=== PATIENT | male | born 1950 | race Caucasian/White ===

== ENCOUNTER → 2019-12-26 14:40 | Outpatient (CLI) | payer MEDICARE, OTHER, SELFPAY ==
[2019-12-26 17:10] LABS: Hemoglobin A1C% w Est Avg Glu 8.5 % (4.0-6.0)
[2019-12-26 17:18] LABS: Alanine Aminotransferase 21 IU/L (<50); Albumin 4.6 g/dL (3.5-5.0); Albumin Globulin Ratio 1.5 (1.0-2.8); Alkaline Phosphatase 81 U/L (38-126); Aspartate Aminotransferase 27 IU/L (17-59); BUN Creatinine Ratio 22.5 (6-22); Bilirubin Total 0.7 mg/dL (0.2-1.3); Blood Urea Nitrogen 23 mg/dL (9-20); Calcium 10.3 mg/dL (8.4-10.2); Carbon Dioxide 27 mmol/L (22-32); Chloride 101 mmol/L (98-107); Cholesterol 169 mg/dL (140-199); Estimated Glomerular Filt Rate > 60.0 mL/min (>60); Globulin 3.1 g/dL (1.7-4.1); Glucose 206 mg/dL (80-110); HDL Cholesterol 40 mg/dL (40-60); HEMOLYSIS < 15 (0-50); LDL Cholesterol Calculated 102 mg/dL (<100); Potassium 4.1 mmol/L (3.4-5.1); Sodium 141 mmol/L (137-145); Total Protein 7.7 g/dL (6.3-8.2); Triglycerides 136 mg/dL (35-150)
== END ==
PROVIDERS: PCP Internal Medicine; Referring Provider Internal Medicine; Visit Provider Internal Medicine
DX: I10 Essential (primary) hypertension (principal); E11.9 Type 2 diabetes mellitus without complications; E78.5 Hyperlipidemia, unspecified
CPT/HCPCS: 36415; 80053; 80061; 83036

== ENCOUNTER → 2020-06-18 16:23 | Outpatient (ROUT) | payer MEDICARE, OTHER, SELFPAY ==
[2020-06-18 17:18] LABS: Creatinine Urine Random 123.9 mg/dL
[2020-06-18 17:22] LABS: Microalbumi Creatinin Ratio Ur 50.8 ug/mg CR (<30); Microalbumin Urine Random 6.3 mg/dL (0-1.6)
[2020-06-18 17:45] LABS: Alanine Aminotransferase 27 IU/L (<50); Albumin 3.9 g/dL (3.5-5.0); Albumin Globulin Ratio 1.6 (1.0-2.8); Alkaline Phosphatase 97 U/L (38-126); Aspartate Aminotransferase 28 IU/L (17-59); BUN Creatinine Ratio 12.9 (6-22); Bilirubin Total 0.7 mg/dL (0.2-1.3); Blood Urea Nitrogen 11 mg/dL (9-20); Carbon Dioxide 28 mmol/L (22-32); Chloride 99 mmol/L (98-107); Cholesterol 145 mg/dL (140-199); Estimated Glomerular Filt Rate > 60.0 mL/min (>60); Globulin 2.5 g/dL (1.7-4.1); Glucose 316 mg/dL (80-110); HDL Cholesterol 47 mg/dL (40-60); HEMOLYSIS < 15 (0-50); LDL Cholesterol Calculated 65 mg/dL (<100); Potassium 4.2 mmol/L (3.4-5.1); Sodium 137 mmol/L (137-145); Total Protein 6.4 g/dL (6.3-8.2); Triglycerides 165 mg/dL (35-150)
[2020-06-18 17:48] LABS: Hemoglobin A1C% w Est Avg Glu 12.4 % (4.0-6.0)
== END ==
PROVIDERS: PCP Internal Medicine; Visit Provider Internal Medicine
DX: E11.9 Type 2 diabetes mellitus without complications (principal); E78.5 Hyperlipidemia, unspecified; I10 Essential (primary) hypertension
CPT/HCPCS: 80053; 80061; 82043; 82570; 83036

== ENCOUNTER → 2020-08-11 11:10 | Outpatient (CLI) | payer MEDICARE, OTHER, SELFPAY ==
[2020-08-11 13:38] LABS: Cholesterol 136 mg/dL (140-199); HDL Cholesterol 48 mg/dL (40-60); LDL Cholesterol Calculated 64 mg/dL (<100); Triglycerides 118 mg/dL (35-150)
== END ==
PROVIDERS: PCP Internal Medicine; Referring Provider Internal Medicine; Visit Provider Internal Medicine
DX: E11.9 Type 2 diabetes mellitus without complications (principal); E78.5 Hyperlipidemia, unspecified
CPT/HCPCS: 36415; 80061

== ENCOUNTER → 2024-05-08 17:29 | Outpatient (CLI) | payer MEDICARE, SELFPAY ==
[2024-05-08 17:57] LABS: Add Manual Diff / Slide Review NO; Basophils Absolute Auto 0 /uL (0-100); Basophils Percent Auto 0.5 % (0-2); Eosinophils Absolute Auto 100 /uL (0-450); Hematocrit 29.2 % (41-53); Hemoglobin 9.8 g/dL (13.5-17.5); Lymphocytes Absolute Auto 800 /uL (1100-4500); Lymphocytes Percent Auto 12.9 % (25-40); Mean Corpuscular HGB Conc 33.6 % (30-36); Mean Corpuscular Hemoglobin 29.5 PG (26-34); Mean Corpuscular Volume 87.7 fL (80-100); Monocytes Absolute Auto 400 /uL (0-900); Monocytes Percent Auto 7.4 % (3-14); Neutrophils Absolute Auto 4800 /uL (1500-7000); Neutrophils Percent Auto 78.2 % (50-75); Platelet Count 429 X10^3/uL (150-400); Red Blood Cell Count 3.33 X10^6/uL (4.5-5.9); Red Cell Distribution Width 19.5 % (11.6-14.8); White Blood Cell Count 6.1 X10^3/uL (4.5-11.0)
[2024-05-08 18:22] LABS: Alanine Aminotransferase 10 IU/L (<50); Albumin 3.7 g/dL (3.5-5.0); Albumin Globulin Ratio 1.2 (1.0-2.8); Alkaline Phosphatase 110 U/L (38-126); Aspartate Aminotransferase 26 IU/L (17-59); BUN Creatinine Ratio 15.6 (6-22); Bilirubin Total 0.4 mg/dL (0.2-1.3); Blood Urea Nitrogen 60 mg/dL (9-20); Calcium 9.4 mg/dL (8.4-10.2); Carbon Dioxide 15 mmol/L (22-32); Chloride 112 mmol/L (98-107); Cholesterol 165 mg/dL (140-199); Estimated Glomerular Filt Rate 16 mL/min (>60); Globulin 3.1 g/dL (1.7-4.1); Glucose 99 mg/dL (80-110); HDL Cholesterol 66 mg/dL (40-60); HEMOLYSIS < 15 (0-50); LDL Cholesterol Calculated 61 mg/dL (<100); Potassium 3.4 mmol/L (3.4-5.1); Sodium 141 mmol/L (137-145); Total Protein 6.8 g/dL (6.3-8.2); Triglycerides 191 mg/dL (35-150)
[2024-05-08 18:53] LABS: TSH w/ Reflex to FT4 4.74 uIU/mL (0.47-4.68)
[2024-05-08 18:57] LABS: Hemoglobin A1C% w Est Avg Glu 5.1 % (4.0-6.0)
[2024-05-08 19:56] LABS: Free T4, Direct Thyroxine 0.91 ng/dL (0.78-2.19)
== END ==
LOC: LAB 17:30
PROVIDERS: PCP Family Medicine; Referring Provider Family Medicine; Visit Provider Family Medicine
DX: Z13.220 Encounter for screening for lipoid disorders (principal); R63.4 Abnormal weight loss; R35.0 Frequency of micturition; R49.0 Dysphonia
CPT/HCPCS: 36415; 80053; 80061; 83036; 84439; 84443; 85025

== ENCOUNTER → 2024-05-16 12:10 | Outpatient (CLI) | payer MEDICARE, SELFPAY ==
--- NOTE | 2024-05-16 13:00 | DI.US.S_ITS ---
PROCEDURE: US RENAL COMPLETE INDICATIONS: RENAL FAILURE TECHNIQUE: Real-time scanning was performed of the kidneys and bladder, with image documentation. COMPARISON: None. FINDINGS: Kidneys: Kidneys are normal in size. Right kidney measures 12.6 cm long; left kidney measures 12.3 cm long. Right renal cortical thickness is 1.8 cm; left renal cortical thickness is 1.9 cm. Echogenic bilateral renal calices are seen which can be seen associated with medullary sponge kidney. Moderate to severe right-sided hydronephrosis is seen with proximal ureter measures 1.6 cm in diameter. No gross nephrolithiasis is seen. Simple appearing cyst is seen in right kidney measures 1.2 x 1.2 x 1.2 cm in lower pole. Moderate to severe left-sided hydronephrosis is also seen. No suspicious solid mass lesions. Bladder: Pre-void bladder volume is 1253 mL. Patient was unable to void. Pre-void images demonstrate no intraluminal masses or stones. On pre-void images, no ureteral jets are noted with color Doppler interrogation. (Of note, ureteral jets may not be detectable in up to 25% of cases due to insufficient differences in specific gravity between ureteral and bladder urine). Miscellaneous: No free pelvic fluid. IMPRESSION: 1. Moderate to severe bilateral hydronephrosis. No obstructing stone is seen. Simple cyst in right kidney. No gross solid appearing renal lesion. 2. Echogenic bilateral renal calices which can be seen associated with medullary sponge kidney suggest clinical correlation. 3. Markedly distended urinary bladder. No gross bladder wall abnormality. Patient was unable to void. Dictated by: Landon Argueta M.D. on 05/16/2024 at 17:52 Approved by: Landon Argueta M.D. on 05/16/2024 at 17:58
[2024-05-16 15:29] LABS: Reticulocyte Count, Percent 1.3 % (0.9-2.6)
[2024-05-16 18:00] LABS: Ferritin 828 ng/mL (18-464)
[2024-05-16 18:14] LABS: Vitamin B12 Reflex MMA if <400 346 pg/mL (239-931)
[2024-05-16 20:01] LABS: HEMOLYSIS < 15 (0-50)
[2024-05-16 20:06] LABS: Iron 60 ug/dL (49-181)
[2024-05-16 20:21] LABS: Percent Iron Saturation 42 % (20-50); Total Iron Binding Capacity 142 ug/dL (261-462); Transferrin 112 mg/dL (206-381)
[2024-05-16 21:36] LABS: Folate 3.1 ng/mL (2.76-20.0)
== END ==
LOC: US 12:10
PROVIDERS: PCP Family Medicine; Referring Provider Family Medicine; Visit Provider Family Medicine
DX: N13.30 Unspecified hydronephrosis (principal); N28.1 Cyst of kidney, acquired; N19 Unspecified kidney failure; D64.9 Anemia, unspecified
CPT/HCPCS: 36415; 76770; 82607; 82728; 82746; 83540; 83550; 83921; 85045

== ENCOUNTER 2024-05-28 14:20 | Inpatient (IN) | payer MEDICARE, SELFPAY ==
[2024-05-28] VITALS (10 sets, daily range): BP systolic 100–122; BP diastolic 50–83; PULSE 75–86; RESP 18–27; TEMP 36.5; O2SAT 99–100; BMI 16.2; BMI 15.2
--- NOTE | 2024-05-28 14:29 | ED_ITS ---
HPI - General Adult General Chief complaint: Weakness Stated complaint: Feeling Unwell/ SOB Time Seen by Provider: 05/28/24 14:25 History of Present Illness HPI narrative: 73-year-old gentleman with a distant history of type 2 diabetes, hypertension, hyperlipidemia, testicular cancer. Apparently has had a loss of appetite over the last 3 years that has gotten dramatically worse since March of this year. His that time. Per friends, who called 911 today which is how the patient ended up in the emergency department, he does not get up does not move around he has not eating, not drinking. Medics describe an hygienic situation in the home. The patient himself is significantly weak with exertional dyspnea and is extraordinarily cachectic. Related Data Home Medications Medication Instructions Recorded Confirmed No Known Home Medications 04/01/24 04/01/24 Allergies Allergy/AdvReac Type Severity Reaction Status Date / Time No Known Drug Allergies Allergy Unverified 04/01/24 12:52 Review of Systems Review of Systems Narrative: Pertinent positive and negative findings as per HPI Patient History Medical History (Updated 05/28/24 @ 15:43 by Ele Lay MD) Normocytic anemia Kidney failure Fatigue Shortness of breath on exertion History of testicular cancer Early satiety Hoarseness Frequent urination Weight loss Surgical History (Updated 05/08/24 @ 18:09 by Lara Lynch MD) History of cataract surgery Social History Smoking Status: Former smoker Smoking Status: Former smoker Exam Narrative Exam Narrative: Weight documented on 05/08 is 122 lb. Today, 05/28 he is at 98 lb Initial Vital Signs Initial Vital Signs: Vital Signs Temperature 97.7 F 05/28/24 14:24 Pulse Rate 81 05/28/24 14:24 Respiratory Rate 18 05/28/24 14:24 Blood Pressure 114/83 05/28/24 14:24 Pulse Oximetry 100 05/28/24 14:24 Oxygen Delivery Method Room Air 05/28/24 14:24 General: Frail, cachectic overall slowed, no acute distress HEENT: Very dry mucous membranes, normal sclera with reactive pupils, Respiratory: Lungs are clear to auscultation, however he is so cachectic it is actually difficult to auscultate through his ribcage, there was no respiratory distress Cardiac: Regular rate and rhythm no murmurs no bruits Abdomen: Soft, midline hernia with completely scaphoid abdomen. No tenderness to palpation , no flank pain Skin: Dry, thin, bruises in various stages of healing Neurologic: Globally weak but otherwise Grossly neurologically intact with no obvious asymmetries or abnormalities Extremities: No trauma, no edema, no skin changes to suggest cellulitis Psych: Cooperative, slightly slowed but overall appropriate and oriented Course Orders Ordered: ED Orders 05/28/24 14:38 XR chest 1V Stat Complete Blood Count AUTO DIFF Stat Comprehensive Metabolic Panel Stat Lactate (Lactic Acid) Stat Lipase Stat Magnesium Stat PHOS [Phosphorous] Stat Thyroid Stimulating Hormone Stat Troponin I Stat Urinalysis and Microscopic Stat EKG-12 Lead Stat Sodium Chloride (Normal Saline 0.9%) 1,000 mls @ 1,000 mls/hr IV BOLUS ONE Stop: 05/28/24 15:37 Discontinued Medications Lidocaine HCl (Lidocaine 2% (Glydo) 6 Ml Gel) 6 ml TOP NOW ONE Stop: 05/28/24 15:30 Vital Signs Vital signs: Vital Signs - 8 hr 05/28/24 14:24 Temperature 97.7 F Pulse Rate 81 Respiratory Rate 18 Blood Pressure 114/83 Pulse Oximetry 100 Oxygen Delivery Method Room Air Medical Decision Making Lab Data 05/28/24 14:20 05/28/24 14:20 Labs: Lab Results 05/28/24 Range/Units 14:20 WBC 13.3 H (4.5-11.0) X10^3/uL RBC 3.66 L (4.5-5.9) X10^6/uL Hgb 10.7 L (13.5-17.5) g/dL Hct 32.4 L (41-53) % MCV 88.6 (80-100) fL MCH 29.2 (26-34) PG MCHC 32.9 (30-36) % RDW 19.6 H (11.6-14.8) % Plt Count 358 (150-400) X10^3/uL Neut % (Auto) 93.0 H (50-75) % Lymph % (Auto) 3.0 L (25-40) % [place] % (Auto) 4.0 (3-14) % Eos % (Auto) 0.0 L (2-4) % Baso % (Auto) 0.0 (0-2) % Neut # (Auto) 54117 H (6046-3194) /uL Lymph # (Auto) 400 L (2445-9262) /uL [place] # (Auto) 500 (0-900) /uL Eos # (Auto) 0 (0-450) /uL Baso # (Auto) 0 (0-100) /uL Sodium 142 (137-145) mmol/L Potassium 3.0 L (3.4-5.1) mmol/L Chloride 111 H (98-107) mmol/L Carbon Dioxide 15 L (22-32) mmol/L BUN 84 H (9-20) mg/dL Creatinine 4.15 H (0.66-1.25) mg/dL Estimated GFR 14 L (>60) mL/min BUN/Creatinine Ratio 20.2 (6-22) Glucose 201 H (80-110) mg/dL Lactate 1.1 (0.7-2.1) mmol/L Calcium 9.2 (8.4-10.2) mg/dL Phosphorus 5.5 H (2.3-3.7) mg/dL Magnesium 1.8 (1.6-2.3) mg/dL Total Bilirubin 0.6 (0.2-1.3) mg/dL AST 23 (17-59) IU/L ALT 13 (<50) IU/L Alkaline Phosphatase 93 (38-126) U/L Troponin I 0.062 H (0.01-0.034) ng/mL Total Protein 6.7 (6.3-8.2) g/dL Albumin 3.6 (3.5-5.0) g/dL Globulin 3.1 (1.7-4.1) g/dL Albumin/Globulin Ratio 1.2 (1.0-2.8) Lipase 173 (23-300) U/L TSH 6.55 H (0.47-4.68) uIU/mL MDM Narrative Medical decision making narrative: CC: Weakness, failure to thrive Complicating co-morbidities: in March of this year. Patient has not been able to care for himself well since that time. Neighbors were concerned that he has not getting out of bed or eating. Reportedly, his daughter who lives in [place] is going to be coming down to visit on Monday. Patient states he has taking no medications and has not for quite awhile. Data collected from: patient, medics Social determinants of health that may influence the patients condition: Lives alone after the of his 2 months ago Medical records reviewed: Family practice note on May 08 regarding early satiety and frequent urination reviewed. Note documents he weighs 122 lb at that time Differential considered: Severe depression, not eating or drinking, metastatic cancer Exam documented above, pertinent findings include: Severe cachexia, overall slowed responses but no obvious physical abnormalities beyond the dramatic cachexia appreciated Lab Test results independently reviewed as above. Pertinent findings: CBC shows a white count of 13.3 chronic stable anemia, normal platelets, significant left shift at 93% neutrophils Chemistries are notable for acute renal failure with a creatinine at 4.1, potassium at 3.0 BUN at 84 glucose of 201 phosphorus elevated at 5 Troponin elevated at 0.062 Liver studies are reassuring, lipase is unremarkable TSH is slightly elevated at 6.5 Independently reviewed EKG: Sinus rhythm at a rate of 80 no acute ischemic changes Imaging studies independently reviewed: Chest x-ray: Lungs are hyperexpanded exam is otherwise unremarkable Consultations: Discussed with Dr. Delcid, admitting hospitalist. Because the acute renal failure is likely from the prostate obstruction as well as not drinking, he is comfortable with the admitting the patient to our hospital. May need a palliative consult if symptoms do not turn around. Daughter will be arriving reportedly on Monday from [place] Treatments: Corral catheter placed, greater than a L returned Discussion: 73-year-old gentleman with dramatic decrease in eating and overall activity over the last 2 months since the of his . He is significantly cachectic with weight it 99 lb, acute urinary obstruction with a L of fluid once catheter is placed, kidney failure with creatinine at 4.1, significant dehydration simply because he has not been eating or drinking. We will be admitted to the hospitalist service. With his slightly elevated white blood cell count we will start ceftriaxone, still waiting for urine results to return. He had some minor redness without significant skin breakdown over his buttock/sacrum area only. Troponin is slightly elevated will trend but suspect that this is due to the elevated creatinine. Patient is safe for transfer to the floor Discharge Plan Departure Patient Disposition: Admitted As Inpatient Clinical Impression: Weight loss, Acute urinary obstruction, Acute hypokalemia, Elevated troponin Acute kidney failure Qualifiers: Acute renal failure type: unspecified Qualified Code(s): N17.9 - Acute kidney failure, unspecified Prescriptions: No Action No Known Home Medications Referrals: Lara Lynch MD [Primary Care Provider] - Admit Date/Time: 05/28/24 15:42 Admit Provider: Ollie Delcid
--- NOTE | 2024-05-28 14:38 | DI.RAD.S_ITS ---
PROCEDURE: XR CHEST 1V INDICATIONS: Dyspnea TECHNIQUE: One view of the chest was acquired. COMPARISON: None. FINDINGS: Surgical changes and devices: None. Lungs and pleura: Lungs are clear. No pleural effusions or pneumothorax. Mediastinum: Mediastinal contours appear normal. Heart size is normal. Bones and chest wall: No suspicious bony lesions. Overlying soft tissues appear unremarkable. IMPRESSION: No acute cardiopulmonary pathology. Dictated by: Landon Argueta M.D. on 05/28/2024 at 15:43 Approved by: Landon Argueta M.D. on 05/28/2024 at 15:43
[2024-05-28 14:46] LABS: Add Manual Diff / Slide Review NO; Basophils Absolute Auto 0 /uL (0-100); Eosinophils Absolute Auto 0 /uL (0-450); Hematocrit 32.4 % (41-53); Hemoglobin 10.7 g/dL (13.5-17.5); Lymphocytes Absolute Auto 400 /uL (1100-4500); Mean Corpuscular HGB Conc 32.9 % (30-36); Mean Corpuscular Hemoglobin 29.2 PG (26-34); Mean Corpuscular Volume 88.6 fL (80-100); Monocytes Absolute Auto 500 /uL (0-900); Neutrophils Absolute Auto 12400 /uL (1500-7000); Platelet Count 358 X10^3/uL (150-400); Red Blood Cell Count 3.66 X10^6/uL (4.5-5.9); Red Cell Distribution Width 19.6 % (11.6-14.8); White Blood Cell Count 13.3 X10^3/uL (4.5-11.0)
[2024-05-28 14:51] LABS: Lactate (Lactic Acid) 1.1 mmol/L (0.7-2.1)
--- NOTE | 2024-05-28 14:51 | EKG_ITS ---
[facility] [address] [place] [address] Test Date: 2024-05-28 Pat Name: Anoop Adame Department: [facility] Room: Gender: Male Tipple Boss: JIM : 1950 Requested By: Order Number: [id number] Reading MD: Parth Yepez MD Measurements Intervals [place] Rate: 80 P: 92 NH: 118 QRS: 17 QRSD: 94 T: 79 QT: 396 QTc: 456 Interpretive Statements Normal sinus rhythm with sinus arrhythmia Nonspecific ST and T wave abnormality Electronically Signed On 05-28-2024 16:18:31 PDT by Parth Yepez MD
[2024-05-28 14:52] LABS: Alanine Aminotransferase 13 IU/L (<50); Albumin 3.6 g/dL (3.5-5.0); Albumin Globulin Ratio 1.2 (1.0-2.8); Alkaline Phosphatase 93 U/L (38-126); Aspartate Aminotransferase 23 IU/L (17-59); BUN Creatinine Ratio 20.2 (6-22); Bilirubin Total 0.6 mg/dL (0.2-1.3); Blood Urea Nitrogen 84 mg/dL (9-20); Calcium 9.2 mg/dL (8.4-10.2); Carbon Dioxide 15 mmol/L (22-32); Chloride 111 mmol/L (98-107); Estimated Glomerular Filt Rate 14 mL/min (>60); Globulin 3.1 g/dL (1.7-4.1); Glucose 201 mg/dL (80-110); HEMOLYSIS < 15 (0-50); Lipase 173 U/L (23-300); Magnesium 1.8 mg/dL (1.6-2.3); Phosphorous 5.5 mg/dL (2.3-3.7); Sodium 142 mmol/L (137-145); Total Protein 6.7 g/dL (6.3-8.2)
[2024-05-28 15:04] LABS: Troponin I 0.062 ng/mL (0.01-0.034)
[2024-05-28 15:22] LABS: Thyroid Stimulating Hormone 6.55 uIU/mL (0.47-4.68)
[2024-05-28] MEDS: LIDOCAINE 2% (GLYDO) 6 ML GEL TOP (15:34)
[2024-05-28] MEDS: SODIUM CHLORIDE 0.9% 1,000 ML 1000 ML IV (15:51)
[2024-05-28 16:21] LABS: Appearance Urine UA CLEAR; Bilirubin Urine UA NEGATIVE (NEGATIVE); Color Urine UA YELLOW; Glucose Urine UA NEGATIVE (Negative); Ketones Urine UA NEGATIVE (NEGATIVE); Nitrite Urine UA NEGATIVE (Negative); Protein Urine UA NEGATIVE (Negative); Specific Gravity Urine UA 1.015 (1.000-1.035)
--- NOTE | 2024-05-28 16:22 | P.HP_ITS ---
History of Present Illness History of Present Illness Date Patient Seen: 05/28/24 Chief complaint: Feeling Unwell/ SOB Narrative: From ED doctor: 73-year-old gentleman with a distant history of type 2 diabetes, hypertension, hyperlipidemia, testicular cancer. Apparently has had a loss of appetite over the last 3 years that has gotten dramatically worse since March of this year. His that time. Per friends, who called 911 today which is how the patient ended up in the emergency department, he does not get up does not move around he has not eating, not drinking. Medics describe an hygienic situation in the home. The patient himself is significantly weak with exertional dyspnea and is extraordinarily cachectic. Additional information: He notes an intentional weight loss from 250-125 several years ago. He was now slept from 09/28 to underwent 100 lb since his in March. He was had profound anorexia which may relate to her . In the ED he had a Corral catheter placed with over a L of urine. He does feel better, he denies having a sensation of a full bladder before the catheter was placed however. No nausea, or vomiting. No chest pain, or dyspnea. He does have poor vision and can not read, having had cataract surgeries in the past. He also has chronic neck stiffness and knee pain. He lives alone in [place]. A renal ultrasound from May 16, 2024 revealed moderate to severe bilateral hydronephrosis as well as bilateral renal calices and a markedly distended bladder consistent with retention at that time. [facility] Medical History Normocytic anemia Kidney failure Fatigue Shortness of breath on exertion History of testicular cancer Early satiety Hoarseness Frequent urination Weight loss Surgical History History of cataract surgery Social History Smoking Status: Former smoker Meds Home Medications and Allergies Home Medications Medication Instructions Recorded Confirmed Type No Known Home Medications 04/01/24 04/01/24 History Allergies Allergy/AdvReac Type Severity Reaction Status Date / Time No Known Drug Allergies Allergy Verified 05/28/24 16:18 Review of Systems Review of Systems Narrative: All else reviewed and otherwise unremarkable except as noted in the history and physical. Exam Vital Signs (past 8 hours): - 05/28/24 14:24 05/28/24 14:33 05/28/24 14:34 Temperature 97.7 F Pulse Rate 81 86 Respiratory Rate 18 24 Blood Pressure 114/83 106/58 L Pulse Oximetry 100 100 Oxygen Delivery Method Room Air 05/28/24 15:00 05/28/24 15:00 05/28/24 15:30 Temperature Pulse Rate 86 82 Respiratory Rate 27 H 20 Blood Pressure 102/51 L Pulse Oximetry 100 100 Oxygen Delivery Method Room Air 05/28/24 15:30 Temperature Pulse Rate Respiratory Rate Blood Pressure 106/53 L Pulse Oximetry Oxygen Delivery Method Oxygen Delivery Method Room Air Narrative Exam Narrative: NAD, alert and oriented, fluent speech, calm. Very cachectic with facial wasting and very long mustache and vaughn. He has some degree of exophthalmos. Normocephalic skull, EOMI, anicteric sclera, symmetric pupils. Oropharynx unremarkable, no droop. Neck supple, midline trachea, no adenopathy. Lungs clear, normal rate and effort. Heart regular, no murmur gallop or rub. Abdomen is soft, non distended and non tender. Extremities are free of edema. Skin is free of rash or lesions. Some bruising is noted. Joints are not swollen or deformed. Judgment appears to be normal. Severe wasting of the torso, abdomen in all extremities No tremor. Objective ECG Impression: Normal sinus rhythm with sinus arrhythmia Nonspecific ST and T wave abnormality Imaging Chest x-ray: Radiologist's impression: No acute cardiopulmonary pathology. Labs 05/28/24 14:20 05/28/24 14:20 Labs: Laboratory Results - last 24 hr 05/28/24 14:20 WBC 13.3 H RBC 3.66 L Hgb 10.7 L Hct 32.4 L MCV 88.6 MCH 29.2 MCHC 32.9 RDW 19.6 H Plt Count 358 Neut % (Auto) 93.0 H Lymph % (Auto) 3.0 L [place] % (Auto) 4.0 Eos % (Auto) 0.0 L Baso % (Auto) 0.0 Neut # (Auto) 39974 H Lymph # (Auto) 400 L [place] # (Auto) 500 Eos # (Auto) 0 Baso # (Auto) 0 Sodium 142 Potassium 3.0 L Chloride 111 H Carbon Dioxide 15 L BUN 84 H Creatinine 4.15 H Estimated GFR 14 L BUN/Creatinine Ratio 20.2 Glucose 201 H Lactate 1.1 Calcium 9.2 Phosphorus 5.5 H Magnesium 1.8 Total Bilirubin 0.6 AST 23 ALT 13 Alkaline Phosphatase 93 Troponin I 0.062 H Total Protein 6.7 Albumin 3.6 Globulin 3.1 Albumin/Globulin Ratio 1.2 Lipase 173 TSH 6.55 H Assessment & Plan Assessment & Plan narrative: 1. GREG, present on admission and active. 2. Hypokalemia, present on admission and active. 3. Urine retention with Corral placed in the ED, present on admission and active. 4. DM 2, present on admission and active. 5. Hypertension, present on admission and active. 6. Hyperlipidemia, present on admission and active. 7. Remote testicular cancer. 8. Recent loss of in March. PLAN: -Corral decompression for GREG and urine retention. This is larger obstructive. -IV fluids in case there is a hypovolemic component. -monitoring and replace potassium slowly. -slide scale correctional insulin and assess his insulin need. -monitor blood pressure, hold meds for now. -TSH WILLIE is 05/30 Anticipate a 2 midnight medical necessity for hospital care to correct his acute medical problems. Time-Based Coding :: 35 min spent with patient and on the chart (including review of chart, obtaining history, exam, reviewing outside data, placing orders, documenting exam and treatment plan, and counseling patient) on 05/28. Quality MIPS - Admit I confirm the patient?s Advance Care Plan is present, Code status is documented, Surrogate decision maker is in patient?s record [If Yes, STOP here]: Yes MIPS - Meds 'Current medications' to include all prescriptions, [id number] products, herbals, cannabis/cannabidiol products, and vitamin/mineral/dietary (nutritional) supplements. I have utilized all available resources to obtain, update, or review the patient?s current medications. [If Yes, STOP here]: Yes
[2024-05-28 16:32] LABS: RBC Urine 1-5/HPF (0-5/HPF); Urine Volume 10mL (spun)
[2024-05-28 16:33] LABS: Squamous Epithelial Cell Urine 1-5 /HPF (0-5/HPF)
--- NOTE | 2024-05-28 16:36 | PC.NURSE ---
updated Nasir (daughter) on pt's condition and admit to hospital. Daughter spoke to her father.
[2024-05-28 16:44] LABS: Occult Blood Urine UA TRACE-INTACT (Negative)
[2024-05-28 16:45] LABS: Urobilinogen Urine UA 0.2 E.U./dL (0.2)
[2024-05-28 16:47] LABS: Culture Indicated Urine Specimen Cultured; Leukocyte Esterase Urine UA 2+ (NEGATIVE)
[2024-05-28 16:51] LABS: Bacteria Urine Few (2-10); WBC Urine 10-30/HPF (0-5/HPF)
[2024-05-28] MEDS: SODIUM CHLORIDE 0.9% 1,000 ML 100 ML IV (17:54)
[2024-05-28] MEDS: POTASSIUM CHLORIDE 10 MEQ TAB 30 MEQ PO (21:53)
[2024-05-28] MEDS: HEPARIN 5,000 UNIT/ML VIAL 5000 UNIT SUBCUT (21:53)
[2024-05-29] VITALS: BP 103/49; PULSE 78; TEMP 36.4; O2SAT 100
[2024-05-29] MEDS: SODIUM CHLORIDE 0.9% 1,000 ML 100 ML IV ×3 (02:58→22:32)
[2024-05-29 04:00] VITALS: BP 93/40; PULSE 86; RESP 20; TEMP 36.8; O2SAT 99
[2024-05-29 04:34] LABS: Add Manual Diff / Slide Review NO; Basophils Absolute Auto 0 /uL (0-100); Basophils Percent Auto 0.2 % (0-2); Eosinophils Absolute Auto 0 /uL (0-450); Eosinophils Percent Auto 0.2 % (2-4); Lymphocytes Absolute Auto 500 /uL (1100-4500); Lymphocytes Percent Auto 4.5 % (25-40); Mean Corpuscular HGB Conc 34.5 % (30-36); Mean Corpuscular Hemoglobin 30.3 PG (26-34); Mean Corpuscular Volume 87.8 fL (80-100); Monocytes Absolute Auto 500 /uL (0-900); Neutrophils Absolute Auto 9200 /uL (1500-7000); Neutrophils Percent Auto 90.1 % (50-75); Platelet Count 245 X10^3/uL (150-400); Red Blood Cell Count 2.96 X10^6/uL (4.5-5.9); Red Cell Distribution Width 19.8 % (11.6-14.8); White Blood Cell Count 10.2 X10^3/uL (4.5-11.0)
[2024-05-29 04:53] LABS: BUN Creatinine Ratio 23.7 (6-22); Blood Urea Nitrogen 75 mg/dL (9-20); Calcium 8.4 mg/dL (8.4-10.2); Carbon Dioxide 13 mmol/L (22-32); Chloride 116 mmol/L (98-107); Estimated Glomerular Filt Rate 20 mL/min (>60); Glucose 133 mg/dL (80-110); HEMOLYSIS < 15 (0-50); Sodium 140 mmol/L (137-145)
[2024-05-29 04:56] LABS: Potassium 2.7 mmol/L (3.4-5.1)
[2024-05-29] MEDS: POTASSIUM CHLORIDE 20 MEQ/15 ML UDC 40 MEQ PO (05:24)
--- NOTE | 2024-05-29 05:32 | PC.NURSE ---
Addendum entered by Augusta Phelan R.N. 05/29/24 06:37: Notified MD Galdamez of H/H down from 10.7/32.4 -> 9.0/26.0. No new orders, will continue to monitor. 3x diarrhea over the course of the shift. Addendum entered by Augusta Phelan R.N. 05/29/24 06:37: Notified MD Galdamez of H/H down from 10.7/32.4 -> 9.0/26.0 Original Note: NOC: Over course of shift, pt drained 1275mL of dark hematuria into rodrigues. VS stable, no pain reported. MD Galdamez informed, no new orders. Will continue to monitor.
--- NOTE | 2024-05-29 07:22 | PM.PN.1 ---
Subjective Subjective Interval history: Admitted with weight loss, GREG, urinary retention, and hypokalemia. S: He was done well overnight, satisfied with his care team. He did develop hematuria with his Corral. The creatinine has improved to some degree. There has been no nausea, or or vomiting. His blood there has been eating but can be soft at times. He denies any nausea, or vomiting. Exam Vital Signs (past 8 hours): - 05/29/24 00:00 05/29/24 00:00 05/29/24 04:00 Temperature 97.6 F 98.2 F Pulse Rate 78 86 Respiratory Rate 20 Blood Pressure 103/49 L 93/40 L Pulse Oximetry 100 100 99 Oxygen Delivery Method Room Air Oxygen Flow Rate 0 0 0 05/29/24 04:00 Temperature Pulse Rate Respiratory Rate Blood Pressure Pulse Oximetry 99 Oxygen Delivery Method Room Air Oxygen Flow Rate 0 Oxygen Delivery Method Room Air Oxygen Flow Rate 0 Narrative Exam Narrative: Cachectic with normal mentation. No acute distress. Lungs are clear, normal effort. Heart is regular, no murmur. Abdomen is soft, very flat and without masses. Extremities are with very little muscle mass and no edema. Objective Labs 05/29/24 04:25 05/29/24 04:25 Labs: Laboratory Results - last 24 hr 05/28/24 05/28/24 05/29/24 14:20 15:45 04:25 WBC 13.3 H 10.2 RBC 3.66 L 2.96 L Hgb 10.7 L 9.0 L Hct 32.4 L 26.0 L MCV 88.6 87.8 MCH 29.2 30.3 MCHC 32.9 34.5 RDW 19.6 H 19.8 H Plt Count 358 245 Neut % (Auto) 93.0 H 90.1 H Lymph % (Auto) 3.0 L 4.5 L [place] % (Auto) 4.0 5.0 Eos % (Auto) 0.0 L 0.2 L Baso % (Auto) 0.0 0.2 Neut # (Auto) 10051 H 9200 H Lymph # (Auto) 400 L 500 L [place] # (Auto) 500 500 Eos # (Auto) 0 0 Baso # (Auto) 0 0 Sodium 142 140 Potassium 3.0 L 2.7 L* Chloride 111 H 116 H Carbon Dioxide 15 L 13 L BUN 84 H 75 H Creatinine 4.15 H 3.16 H Estimated GFR 14 L 20 L BUN/Creatinine Ratio 20.2 23.7 H Glucose 201 H 133 H Lactate 1.1 Calcium 9.2 8.4 Phosphorus 5.5 H Magnesium 1.8 Total Bilirubin 0.6 AST 23 ALT 13 Alkaline Phosphatase 93 Troponin I 0.062 H Total Protein 6.7 Albumin 3.6 Globulin 3.1 Albumin/Globulin Ratio 1.2 Lipase 173 TSH 6.55 H Urine Color Yellow Urine Appearance Clear Urine pH 5.0 Ur Specific [place] 1.015 Urine Protein Negative Urine Glucose (UA) Negative Urine Ketones Negative Urine Occult Blood Trace-intact Urine Nitrate Negative Urine Bilirubin Negative Urine Urobilinogen 0.2 Ur Leukocyte Esterase 2+ H Urine RBC 1-5/hpf Urine WBC 10-30/hpf H Ur Squamous Epith Cells 1-5 /hpf Urine Bacteria Few (2-10) H Ur Culture Indicated? Specimen cultured Vol Urine Centrifuged 10ml (spun) [facility] Medical History Normocytic anemia Kidney failure Fatigue Shortness of breath on exertion History of testicular cancer Early satiety Hoarseness Frequent urination Weight loss Surgical History History of cataract surgery Social History household members: none Smoking Status: Former smoker alcohol intake: former Assessment & Plan Assessment & Plan narrative: 1. GREG, present on admission and active. 2. Hypokalemia, present on admission and active. 3. Urine retention with Corral placed in the ED, present on admission and active. 4. DM 2, present on admission and active. 5. Hypertension, present on admission and active. 6. Hyperlipidemia, present on admission and active. 7. Remote testicular cancer. 8. Recent loss of in March. PLAN: -Corral decompression for GREG and urine retention. This is largly obstructive renal failure. -we will continue IV fluids in case there is a hypovolemic component. -monitoring and replace potassium slowly. -slide scale correctional insulin and assess his insulin need. -monitor blood pressure, hold meds for now. We will continue to hold given his soft blood pressures. -TSH is mildly elevated -monitor hematuria and bladder scan twice a day to rule out retention from clots. WILLIE is 05/31 Anticipate a 2 midnight medical necessity for hospital care to correct his acute medical problems. Time-Based Coding :: [TOTAL MINUTES] spent with patient and on the chart (including review of chart, obtaining history, exam, reviewing outside data, placing orders, documenting exam and treatment plan, and counseling patient) on [DATE]. Quality VTE Deep Vein Thrombosis/Pulmonary Embolism Present on Admission: No
[2024-05-29] MEDS: POTASSIUM CHLORIDE IN WATER 10 MEQ/100 ML PIGGYBACK 100 MEQ IV ×4 (07:56→11:43)
[2024-05-29 08:00] VITALS: BP 95/44; PULSE 85; RESP 20; TEMP 36.9; O2SAT 100; O2SAT 97
--- NOTE | 2024-05-29 10:22 | CM.DANOTE ---
Initial DCP Assessment Visit Note Reviewed EMR and team rounds for status updates. Met with pt at bedside to introduce self and role, pt was found to be alert, oriented, and able to share his concerns and needs while inpt, as well as his preference for d/c. He has lived independently in his own apartment up until a few months ago, when he began to severely decline, and is no longer able to take care of himself or his apartment. His dtr is arriving from [place] on Monday, and will plan to meet with this WIRE INSPECTOR on Monday in order to complete the DPOA/Healthcare, provide General DPOA (financial) forms, and discuss plan for SNF rehab and post-d/c from SNF plan to relocate him up to [place], in order to live by her and her family. Payor: [employer] Medicare PCP: Dr. Lynch Pt is a 73 year-old M who presents to the ED via EMS yesterday afternoon after friends arrived at his apartment and found him gravely disabled. Friends shared that he has had a decreasing appetite over the last 3-years, however after his 2-months ago, he began to decline overall, and has lost over 20-lbs due to not eating. His friends found that he had not been getting up from bed and was not moving around the house, that he had not showered in an indeterminate amount of time, and was not eating/drinking, resulting in severe dehydration, GREG, severe cachexia, was SOB, and very weak. Medics also reported that his apartment was unkempt and was clearly a hoarding situation. He does have a hx of testicular cancer, and there is some question as to whether it has returned or not, as he had urinary retention, an obstructed prostate, and renal failure. He was started on IV ABO's as his WBC count was slightly elevated. Dtr, Nasir, states that she will be here Monday to assist with the d/c and long-term care plan. Pt shared that right after his , he had lasik surgery, which resulted in him being unable to see well enough to read, had not been opening his mail, so his [employer] locked his account, and he was been unable to access his social security checks. He also did not have a phone, as it changed carriers and he could not figure out how to work his phone anymore. Plan is for his dtr to assist with accessing the [employer] account, she is bringing him a new phone with service, and we will further discuss the logistics of SNF rehab to [place] once completed. Discharge Planning/Care Management CM Discharge Assessment Start: 05/29/24 09:15 Freq: Status: Active Protocol: Document 05/29/24 09:16 DPL (Rec: 05/29/24 10:21 DPL [id number]) Discharge Planning Assessment Assigned Pharmaceutical Analyst [place] Advance Directives? No History Provided By Patient,Medical Record Has Patient been admitted in last 30 No days? Prior Living Arrangements Apartment/Condo Household Members none Type of transporation used prior to Relies on Others admit Independent with ADL's No: Severe decompensation/ failure to thrive. Is patient alert and oriented? Yes Comment He has not been taking care of himself at all, has lost over 20-pounds over the last 2- months, not attending to hygiene, not eating/drinking or moving around the apartment . Caregiver for Another No Comment none Patient/Family Preference Care Home Facility Barriers to Discharge Yes Comment Unsafe living situation, cannot care for himself. Plan is to move to [place] with his dtr. Discharge Plan Care Home Facility Referrals Initiated Care Home If patient plan is SNF: Has PASSR been No completed? Inpatient Status as of 05/28/24 Medicare Choice List Provided Yes Medicare choice list reviewed on [employer] electronic tablet with Has Agency SNF been contacted Yes Whiteboard Updated in Patient Room with Yes name and ext. # of Pharmaceutical Analyst Review Status In Process Please Provide Date Initial DC 05/29/24 Assessment Was Performed
[2024-05-29] MEDS: THIAMINE 100 MG TABLET PO (11:44)
[2024-05-29 12:00] VITALS: BP 83/41; PULSE 88; TEMP 36.9; O2SAT 100; O2SAT 95
[2024-05-29 15:02] LABS: BUN Creatinine Ratio 24.8 (6-22); Blood Urea Nitrogen 67 mg/dL (9-20); Calcium 8.2 mg/dL (8.4-10.2); Carbon Dioxide 15 mmol/L (22-32); Chloride 115 mmol/L (98-107); Estimated Glomerular Filt Rate 24 mL/min (>60); Glucose 161 mg/dL (80-110); HEMOLYSIS < 15 (0-50); Potassium 3.6 mmol/L (3.4-5.1); Sodium 139 mmol/L (137-145)
--- NOTE | 2024-05-29 15:04 | DIET.CONS ---
Dietary Consultation Note Admission Date: 05/28/2024 15:42 Assessment: 73 y M admitted after friends found pt gravely disable. Admitted with weight loss, GREG, urinary retention and hypokalemia. Nutrition screened for low MNA. Met with pt at bedside. Reports that the weight loss of 250-125 lb happened over a course of 2 years around 3 years ago, states this was d/t stopping all his medications. Confirms that since has had lack of appetite. Took bites of food, would chew, but spit back out d/t lack of appetite. He ate the cucumbers at lunch today, but found the soup and kamilla bread too hard. Would like softer foods. Unit host coordinated dinner and breakfast order according to needs. Provided reccs for softer foods on menu. K+ 2.7 this morning, pharmacy replete per protocol, at 3.6 this afternoon. Nutrition focused physical exam- severe muscle wasting (temporalis, pectoralis, deltoid, trapezius, interosseous), severe subcutaneous fat loss (buccal and orbital fat pads, triceps) Ht: 165.1 cm Wt: 41.5 kg BMI: 15.2 UBW: 56.245 kg on 04/01/24 (26% weight loss in 2 months, severe) Last BM: 05/29/24 (05/29/24 07:52) MNA: 4 Pradip Score: 15 Diet: 05/28/24 Dinner General (Regular) Diet Diet Modifications: Nutrition Percent Meal Consumed 10 05/29/24 12:40 Labs: RBC 2.96 X10^6/uL (4.5-5.9) L 05/29/24 04:25 Hgb 9.0 g/dL (13.5-17.5) L 05/29/24 04:25 Hct 26.0 % (41-53) L 05/29/24 04:25 Creatinine 3.16 mg/dL (0.66-1.25) H 05/29/24 04:25 Lactate 1.1 mmol/L (0.7-2.1) 05/28/24 14:20 Nutrition Diagnosis: Severe acute protein calorie malnutrition r/t lack of appetite and decreased ability to care for self as evidenced by 26% weight loss in 2 months (severe), <25% of estimated energy needs for 2 months, severe muscle wasting (temples, deltoid, trapezius, pectoralis major, interosseous), severe subcutaneous fat loss (buccal and orbital fat pads, triceps), BMI underweight (15.2) The patient is at much higher risk for medical and surgical complications because of their malnutrition. This increases the difficulty and complexity of medical and surgical interventions and increases the chances of poor outcomes such as morbidity and mortality. Interventions: -Gradual increase in nutrition, starting with 10 kcals/kg and supporting intakes with ONS as needed to increase kcal and protein intake by 33% q1-2 days. Oral supplement provided with dinner today. -Monitoring lytes, pharmacy added thiamin 100 mg for first 5 days EER: Goal caloric intake -4098-6039 kcals (40 kcals/kg), 65-75 g protein (1.5-1.75 g/kg) Monitoring/Evaluations: po intakes, ons tolerance, f/u tomorrow Electronically Signed by: Mally Yang 05/29/24 15:04 Clinical Dietitian [address] [id number]
[2024-05-29 16:00] VITALS: BP 99/54; PULSE 89; RESP 16; TEMP 37; O2SAT 100; O2SAT 95
[2024-05-29 20:00] VITALS: BP 94/39; PULSE 82; RESP 16; TEMP 36.7; O2SAT 100
[2024-05-30] VITALS: BP 95/53; PULSE 87; TEMP 36.6; O2SAT 99
[2024-05-30 01:08] LABS: Hemoglobin 8.4 g/dL (13.5-17.5)
[2024-05-30 02:14] LABS: Magnesium 1.3 mg/dL (1.6-2.3); Phosphorous 2.6 mg/dL (2.3-3.7)
[2024-05-30 02:15] LABS: BUN Creatinine Ratio 28.3 (6-22); Blood Urea Nitrogen 58 mg/dL (9-20); Calcium 7.7 mg/dL (8.4-10.2); Carbon Dioxide 11 mmol/L (22-32); Estimated Glomerular Filt Rate 33 mL/min (>60); Glucose 99 mg/dL (80-110); HEMOLYSIS < 15 (0-50); Potassium 3.1 mmol/L (3.4-5.1); Sodium 142 mmol/L (137-145)
[2024-05-30 02:46] LABS: Chloride 122 mmol/L (98-107)
[2024-05-30 02:48] LABS: Add Manual Diff / Slide Review NO; Basophils Absolute Auto 0 /uL (0-100); Eosinophils Absolute Auto 0 /uL (0-450); Eosinophils Percent Auto 0.2 % (2-4); Hematocrit 23.9 % (41-53); Hemoglobin 8.1 g/dL (13.5-17.5); Lymphocytes Absolute Auto 400 /uL (1100-4500); Lymphocytes Percent Auto 4.6 % (25-40); Mean Corpuscular HGB Conc 33.9 % (30-36); Mean Corpuscular Hemoglobin 29.9 PG (26-34); Mean Corpuscular Volume 88.4 fL (80-100); Monocytes Absolute Auto 500 /uL (0-900); Neutrophils Absolute Auto 8500 /uL (1500-7000); Neutrophils Percent Auto 90.2 % (50-75); Platelet Count 187 X10^3/uL (150-400); Red Blood Cell Count 2.71 X10^6/uL (4.5-5.9); Red Cell Distribution Width 19.8 % (11.6-14.8); White Blood Cell Count 9.4 X10^3/uL (4.5-11.0)
[2024-05-30 04:00] VITALS: BP 88/46; PULSE 82; RESP 16; TEMP 36.2; O2SAT 99
--- NOTE | 2024-05-30 07:57 | P.PN_ITS ---
Subjective Subjective Interval history: Summary: Admitted with weight loss, GREG, urinary retention, and hypokalemia. His in the summertime. He has been having some diarrhea here, which is new. He requested an antidiarrheal medication. Also did note that to women were trying to street him and plant a transmitter into his body. Other than that everybody else has been very kind and helpful in his care. S: Diarrhea, this is new. No abdominal pain. No chest pain, or dyspnea. Exam Vital Signs (past 8 hours): - 05/30/24 00:00 05/30/24 04:00 Temperature 98 F 97.1 F L Pulse Rate 87 82 Respiratory Rate 16 Blood Pressure 95/53 L 88/46 L Pulse Oximetry 99 99 Oxygen Flow Rate 0 0 Oxygen Delivery Method Room Air Oxygen Flow Rate 0 Narrative Exam Narrative: NAD, alert and oriented. Fluent speech. Cachectic with facial and extremity wasting. Lungs are clear, normal rate and effort. Heart is regular, no murmur gallop or rub. Abdomen is soft, non distended. Extremities are free of edema. Hematuria in [place], dark red Objective Labs 05/30/24 02:35 05/30/24 00:40 Labs: Laboratory Results - last 24 hr 05/29/24 05/30/24 05/30/24 14:35 00:40 01:03 WBC RBC Hgb 8.4 L Hct MCV MCH MCHC RDW Plt Count Neut % (Auto) Lymph % (Auto) [place] % (Auto) Eos % (Auto) Baso % (Auto) Neut # (Auto) Lymph # (Auto) [place] # (Auto) Eos # (Auto) Baso # (Auto) Sodium 139 142 Potassium 3.6 3.1 L Chloride 115 H 122 H* Carbon Dioxide 15 L 11 L BUN 67 H 58 H Creatinine 2.70 H 2.05 H Estimated GFR 24 L 33 L BUN/Creatinine Ratio 24.8 H 28.3 H Glucose 161 H 99 Calcium 8.2 L 7.7 L Phosphorus 2.6 D Magnesium 1.3 L 05/30/24 02:35 WBC 9.4 RBC 2.71 L Hgb 8.1 L Hct 23.9 L MCV 88.4 MCH 29.9 MCHC 33.9 RDW 19.8 H Plt Count 187 Neut % (Auto) 90.2 H Lymph % (Auto) 4.6 L [place] % (Auto) 5.0 Eos % (Auto) 0.2 L Baso % (Auto) 0.0 Neut # (Auto) 8500 H Lymph # (Auto) 400 L [place] # (Auto) 500 Eos # (Auto) 0 Baso # (Auto) 0 Sodium Potassium Chloride Carbon Dioxide BUN Creatinine Estimated GFR BUN/Creatinine Ratio Glucose Calcium Phosphorus Magnesium [facility] Medical History Normocytic anemia Kidney failure Fatigue Shortness of breath on exertion History of testicular cancer Early satiety Hoarseness Frequent urination Weight loss Surgical History History of cataract surgery Social History household members: none Smoking Status: Former smoker alcohol intake: former Assessment & Plan Assessment & Plan narrative: 1. GREG, present on admission and improving. 2. Hypokalemia, present on admission and active. 3. Urine retention with Corral placed in the ED, present on admission and active. 4. DM 2, present on admission and active. 5. Hypertension, present on admission and active. 6. Hyperlipidemia, present on admission and active. 7. Remote testicular cancer. 8. Recent loss of in March. 9. Hypo magnesemia, new and active. 10. Hematuria in Cor[place] after placement of [place] catheter. Likely traumatic. 11. Anemia, likely multifactorial. 12. Some paranoid thoughts, new and active. 13. Hyper anemia, new and active. PLAN: -Corral decompression for GREG and urine retention. This is largly obstructive renal failure. Occasional bladder scans to rule out retention with her hematuria. -we will continue IV fluids in case there is a hypovolemic component. Switching to sodium bicarb 4 hyperchloremia correction. -monitoring and replace potassium slowly. Magnesium replacement today. -slide scale correctional insulin and assess his insulin need. -monitor blood pressure, hold meds for now. We will continue to hold given his soft blood pressures. -TSH is mildly elevated, no active changes at this point. -monitor hematuria and bladder scan twice a day to rule out retention from clots. Monitor hemoglobin. -physical therapy assessment. WILLIE is 06/01 Anticipate a 2 midnight medical necessity for hospital care to correct his acute medical problems. Time-Based Coding :: [TOTAL MINUTES] spent with patient and on the chart (including review of chart, obtaining history, exam, reviewing outside data, placing orders, documenting exam and treatment plan, and counseling patient) on [DATE]. Quality VTE Deep Vein Thrombosis/Pulmonary Embolism Present on Admission: No
[2024-05-30 08:00] VITALS: BP 97/51; PULSE 87; RESP 16; TEMP 36.2; O2SAT 98
--- NOTE | 2024-05-30 08:12 | PC.NURSE ---
NOC Shift Note- Patient reported having halluncinations. Hallucinations, confusion, and paranoia began to increase over the next few hours. Patient reports not trusting people, we had him tied down, and all his info was being transmitted thru the tele monitor. Advised hospitist, [place] blood work early, and attempted to calm patient. Patient trusted this RN and allowed me to draw blood, continue tele, and get vitals. Critical chloride numbers came back with blood work. Hospitalist advised. Allowed patient to sleep and discussed resluts with him when he woke at 0615. Confusion seems to be decrease and patient cooperative with care at this time.
[2024-05-30] MEDS: HEPARIN 5,000 UNIT/ML VIAL 5000 UNIT SUBCUT ×2 (09:00→20:55)
[2024-05-30] MEDS: THIAMINE 100 MG TABLET PO (09:01)
[2024-05-30] MEDS: POTASSIUM CHLORIDE IN WATER 10 MEQ/100 ML PIGGYBACK 100 MEQ IV ×4 (09:01→15:28)
--- NOTE | 2024-05-30 10:18 | DIET.PN1 ---
Dietary Progress Note Assessment: F/u with pt. Reports enjoying the smoothie and wanting that for lunch again. Ate 2 bites of omelet this morning. K+ and Mg low. Pharmacy repleting per protocol. Will continue to monitor po intakes, provide supplementations accordingly, and monitor labs. Ht: 165.1 cm Wt: 41.5 kg BMI: 15.2 Last BM: 05/30/24 (05/30/24 03:35) MNA: 4 Pradip Score: 18 Diet: 05/28/24 Dinner General (Regular) Diet Diet Modifications: Nutrition Percent Meal Consumed 25% 05/29/24 18:00 Percent Meal Consumed 10 05/29/24 12:40 Labs: RBC 2.71 X10^6/uL (4.5-5.9) L 05/30/24 02:35 Hgb 8.1 g/dL (13.5-17.5) L 05/30/24 02:35 Hct 23.9 % (41-53) L 05/30/24 02:35 Creatinine 2.05 mg/dL (0.66-1.25) H 05/30/24 00:40 Lactate 1.1 mmol/L (0.7-2.1) 05/28/24 14:20 Electronically Signed by: Mally Yang 05/30/24 10:18 Clinical Dietitian [address] [address]
[2024-05-30] MEDS: LOPERAMIDE 2 MG CAPSULE PO ×2 (11:40→16:43)
[2024-05-30 12:00] VITALS: BP 107/59; PULSE 75; RESP 16; TEMP 36.3; O2SAT 98
[2024-05-30] MEDS: MAGNESIUM SULFATE 2 GM/50 ML PIGGYBACK IV (13:10)
--- NOTE | 2024-05-30 13:11 | PT.IIE ---
Current Diagnoses Acute kidney failure, unspecified (05/28/24) Surgical History (Last Reviewed 05/28/24 @ 16:23 by Ollie Delcid MD) History of cataract surgery Medical History (Last Reviewed 05/28/24 @ 16:23 by Ollie Delcid MD) Early satiety Fatigue Frequent urination History of testicular cancer Hoarseness Kidney failure Normocytic anemia Shortness of breath on exertion Weight loss Physical Therapy Inpatient Evaluation/Re-Eval M1 PT/OT-IP Prior Functional Status Start: 05/30/24 12:25 Freq: NEEDED Status: Active Protocol: Document 05/30/24 12:20 MB (Rec: 05/30/24 13:11 MB [id number]) Medical Review Prior Functional Status Medical History Reviewed Yes Communication WNLs, unsure baseline diet as pt has had a lot of weight loss per chart. He reports little appetite and especially since . Mobility and Gait Mod I with oak cane and he denies falls in 2023 Activities of Daily Living and IADL's I for ADLs in the house and pt does not drive and takes taxi to doctor's appointments and [employer] for shopping Social History Household Members none Living Arrangements Apartment/Condo Number of Floors (Floors) One Floor Number of Stairs To Enter/Railing? 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 He tracks PT and points directly to red button concrete pipe making machine operator greenberg when asked if he can see to call out for nsg. M2 PT-IP Current Condition Start: 05/30/24 12:25 Freq: NEEDED Status: Active Protocol: Document 05/30/24 12:20 MB (Rec: 05/30/24 13:11 MB [id number]) Physical Therapy Current Condition Current Condition Evaluation Date 05/30/24 Treatment Diagnosis Excessive weight loss, GREG, weakness M3 PT-IP Subjective Start: 05/30/24 12:25 Freq: NEEDED Status: Active Protocol: Document 05/30/24 12:20 MB (Rec: 05/30/24 13:11 MB [id number]) Subjective Physical Therapy Visit Type Type Initial Evaluation Visit Start Time 12:20 Visit Stop Time 12:53 Number of MEATCUTTER Visits 0 Physical Therapy Visit Comments Patient Comments Initially, pt is mildly agitated and stating that PT is rushing him when PT asks questions. He repeats several times about wanting try out from in front of him and nothing tasted good to him at lunch. Therapy Pain Assessment Pain When Pain Assessed At Rest Pain Present Pain Present Pain Reported Location My butt Intensity 1 Scale Used Arianna (Faces) M4 PT-IP Mobility and Gait Start: 05/30/24 12:25 Freq: NEEDED Status: Active Protocol: Document 05/30/24 12:20 MB (Rec: 05/30/24 13:11 MB [id number]) PT-Bed Mobility Assessment Rolling Type of Rolling Roll to Right Level of Assist Contact Guard Assistance,1 Person Assistance Supine to Sit Supine to Sit Contact Guard Assistance,1 Person Assistance,Bedrails Sit to Supine Sit to Supine Bedrails Scooting Scooting to Edge of Bed Contact Guard Assistance PT-Transfer Assessment Sit to and From Stand Sit to and from Stand Contact Guard Assistance,1 Person Assistance,Use of Upper Extremities Equipment Transfer Assistive Device Gait Belt Orthotic/Prosthetic Devices or Brace: No Transfers Transfer Destination Bedside Commode Transfer Technique Stand Step Pivot Comments Mobility Comments PT assistance to doff brief and PT did not note bowel incontinence and pt left on BSC with nsg aware, call greenberg, and pt denying light- headedness and stating he feels safe on the BSC and will call for assistance after BM PT-Balance Assessment Sitting Balance and Reactions Static Sitting Balance Ability Good Dynamic Sitting Balance Ability Fair Standing Balance and Reactions Static Standing Balance Ability Fair Dynamic Standing Balance Ability Fair Device Used Gait belt CGA M5 PT-IP Objective Assessments Start: 05/30/24 12:25 Freq: NEEDED Status: Active Protocol: Document 05/30/24 12:20 MB (Rec: 05/30/24 13:11 MB [id number]) Orientation Orientation/Cognition Level of Alertness Alert Orientation Name,Age,Birthday,Month,Date, Year,Day of Week,Place, Situation Language Function Ability No Deficits Noted Safety Awareness Decreased Safety Awareness Memory Description No Deficits Noted Gross Range of Motion Upper Extremity ROM Impairments Defer to OT Lower Extremity ROM Assessment Within Functional Limits Impairments Cachexia and decreased muscle mass and pt cannot tolerate ROM or MMT today Strength Lower Extremity Strength Assessment Within Functional Limits Comments Strength Comments See comments above. Can MMT a later date. Coordination Assessment Assessment Coordination Comments Did not test today. Sensation Assessment Comments Sensation Comments Did not test today. M7 PT-IP Assessment and Plan Start: 05/30/24 12:25 Freq: NEEDED Status: Active Protocol: Document 05/30/24 12:20 MB (Rec: 05/30/24 13:11 MB [id number]) PT Summary Assessment and Plan Potential Rehabilitation Potential Good Status of Condition at Evaluation Evolving Summary Impairments ROM,Strength,Balance,Bed Mobility,Transfers,Gait, Activity Tolerance Progress Towards Goals Progressing Toward Goals Assessment Summary Pt is a 73 y/o male presenting with cachetic appearance and reports of diarrhea, adm with GREG and weakness. He reports decreased appetite since a few months ago. He lives alone in apartment up 17 steps and has not been driving d/t vision changes. Pt A&O though he does make a comment about trasmitter being in arm and when PT asks if he is talking about IV, he states it is a transmitter that was put in without him knowing. He is SBA for bed mobility and [facility] and no bowel incontinence noted in brief, though nsg reports pt has diarrhea and stool sample sent out. Recommend increased assistance at d/c, SNF and then chart mentions some family in [place]. Goals Bed Mobility Goal Independent Transfer Goal Independent,Cane,Front Wheeled Walker Gait Goal Independent,Cane,Front Wheel Walker Gait Distance 75 Other Goals Pt will ascend and descend flight of steps with two rails or cane and one rail to allow safe home entry. Days to Meet Goals 10 Frequency of Treatment Frequency Of Treatment Once a Day Treatment Plan Physical Therapy Treatment Plan Bed Mobility Training,Transfer Training,Gait Training, Therapeutic Exercise,Balance Retraining,Discharge Planning, Hot or Cold Pack,Neuromuscular Re-ed,Coordination Retraining ,Manual Therapy Precautions Other Precautions Diarrhea and stool sample sent off, falls Weight Bearing Status Allowed Weight Bearing Amount (enter % No restrictions or #) (%) Recommendations To Nursing Amount of Assist Needed 1 Person Assist Discharge Recommendations PT Discharge Recommendations SNF Rehab Transportation Needs at Discharge Private Vehicle,Wheelchair/ Cabulance
--- NOTE | 2024-05-30 13:42 | OT.IP.EVAL ---
Current Diagnoses Acute kidney failure, unspecified (05/28/24) Past Medical History (Last Reviewed 05/28/24 @ 16:23 by Ollie Delcid MD) Early satiety Fatigue Frequent urination History of testicular cancer Hoarseness Kidney failure Normocytic anemia Shortness of breath on exertion Weight loss Surgical History (Last Reviewed 05/28/24 @ 16:23 by Ollie Delcid MD) History of cataract surgery Occupational Therapy Inpatient Evaluation/Re-Eval M1 PT/OT-IP Prior Functional Status Start: 05/30/24 12:25 Freq: NEEDED Status: Active Protocol: Document 05/30/24 14:02 [facility] (Rec: 05/30/24 14:13 [facility] [id number]) Medical Review Prior Functional Status Medical History Reviewed Yes Communication WNLs, unsure baseline diet as pt has had a lot of weight loss per chart. He reports little appetite and especially since . Mobility and Gait Mod I with oak cane and he denies falls in 2023 Activities of Daily Living and IADL's I for ADLs in the house and pt does not drive and takes taxi to doctor's appointments and [employer]ac[employer] for shopping Social History Household Members none Living Arrangements Apartment/Condo Number of Floors (Floors) One Floor Number of Stairs To Enter/Railing? 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 He tracks PT and points directly to red button sulfonator operator greenberg when asked if he can see to call out for nsg. M2 OT-IP Current Condition Start: 05/30/24 14:01 Freq: Status: Active Protocol: Document 05/30/24 14:02 [facility] (Rec: 05/30/24 14:13 [facility] [id number]) Occupational Therapy Current Condition Current Condition Evaluation Date 05/30/24 Treatment Diagnosis GREG, generalized weakness, unrine retention Diagnosis Onset Date 05/28/24 M3 OT- IP Subjective and Pain Start: 05/30/24 14:01 Freq: Status: Active Protocol: Document 05/30/24 14:02 [facility] (Rec: 05/30/24 14:13 [facility] [id number]) OT- Subjective Occupational Therapy Visit Type Type Initial Evaluation Visit Start Time 13:17 Visit Stop Time 13:42 Occupational Therapy Visit Comments Patient Comments Pt very tired and agreed to get up. Patient/Caregiver Goals TO get better. OT Pain Assessment Pain When Pain Assessed At Rest Pain Present Pain Present Pain Reported Location My butt Pain Behaviors Calling Out,Holding Area, Wincing M4 OT- IP ADL's Start: 05/30/24 14:01 Freq: Status: Active Protocol: Document 05/30/24 14:02 [facility] (Rec: 05/30/24 14:13 [facility] [id number]) OT [id number] Comments OT Self-Feeding Comments Not at meal time. Pt states has been able to eat but minimally. OT ADL-Grooming Comments OT Grooming Comments Not performed. OT ADL-Oral Care Comments Oral Care Comments Not performed. OT ADL-Dressing General Eval Lower Body Dressing Ability Moderate Assistance Comments OT Dressing Comments Assist for socks and clothing especially when standing due to decreased balance. OT ADL-Toileting General Evaluation Toileting Ability Total Assistance Comments OT Toileting Comments Corral in place. OT ADL-Bathing Comments OT Bathing Comments NOt performed as pt too tired. Pt states has been sponging off at home due to decreased vision. M5 OT- IP IADL's Start: 05/30/24 14:01 Freq: Status: Active Protocol: Document 05/30/24 14:02 [facility] (Rec: 05/30/24 14:13 [facility] [id number]) OT-Instrumental Activities of Daily Living Deficits IADL Deficits Identified Deficits Home Safety Awareness Awareness of Need for Assistance at Home Good Awareness Home Safety Comments Pt states does not have his new glasses and therefore not able to see well. Medication Management Medication Management Comments Pt would benefit from assist due to poor vision. Money Management Money Management Comments Pt will need assist. Meal Preparation Meal Preparation Comments Pt will need assist. Hydraulic Bull Riveter Operator Hydraulic Bull Riveter Operator Comments Pt will need assist. M6 OT- IP Functional Cognition Start: 05/30/24 14:01 Freq: Status: Active Protocol: Document 05/30/24 14:02 [facility] (Rec: 05/30/24 14:13 [facility] [id number]) Cognitive Factors Limiting Selfcare Function Cognitive Ability Level of Alertness Alert Patient Orientation Name,Age,Birthday,Month,Date, Year,Day of Week,Place, Situation Attention Span Ability Capable of Focused Attention, Capable of Sustained Attention Ability to Follow Commands Able to Follow One Step Commands Cognitive Comments Cognitive Assessment Comments Pt able to follow commands during OT eval. OT- Vision and Hearing OT- Hearing Assessment OT- Hearing Assessment WFL OT- Vision Assessment Visual Acuity Glasses All The Time Vision Assessment Comments Pt states wears the dark glasses, but suppose to get his prescription glasses on Monday,yesterday. M7 OT- IP Mobility and Balance Start: 05/30/24 14:01 Freq: Status: Active Protocol: Document 05/30/24 14:02 [facility] (Rec: 05/30/24 14:13 [facility] [id number]) OT- Bed Mobility Assessment Supine to Sit Supine to Sit Assist Minimal Assistance Sit to Supine Sit to Supine Assist Minimal Assistance Scooting Scooting to Edge of Bed Contact Guard Assistance OT-Transfer Assessment Sit to and From Stand Sit to and from Stand Minimal Assistance Comments Mobility Comments LEONARDA to help get upright and able to stand from the high bed and tends to lean his legs on the bed to assist to stand at this time and very unsteady on his feet. OT- Balance Assessment Sitting Balance and Reactions Static Sitting Balance Ability Good Dynamic Sitting Balance Ability Fair Standing Balance and Reactions Static Standing Balance Ability Fair M8 OT- IP Objective Assessments Start: 05/30/24 14:01 Freq: Status: Active Protocol: Document 05/30/24 14:02 [facility] (Rec: 05/30/24 14:13 [facility] [id number]) OT Gross Range of Motion Upper Extremity Range of Motion Assessment Within Functional Limits OT Strength Upper Extremity Strength Assessment Within Functional Limits Hand Job Forwarder Strength Hand Dominance Right OT- Coordination Assessment Upper Extremity Finger to Nose Test Within Functional Limits M9 OT- IP Assessment and Plan Start: 05/30/24 14:01 Freq: Status: Active Protocol: Document 05/30/24 14:02 [facility] (Rec: 05/30/24 14:13 [facility] [id number]) OT Summary Assessment and Plan Potential Rehabilitation Potential Fair Analytic Complexity at Evaluation Moderate Summary OT Impairments Pain,Strength,Balance, Functional Mobility,Grooming, Dressing,Toileting,Bathing, Toilet Transfers,Shower Transfers,Activity Tolerance Progress Towards Goals Slow Progress due to Pain,Slow Progress due to Medical Issues,Slow Progress due to Activity Tolerance Assessment Summary Pt MOD complexity and main barriers are steps, decreased vision, weakness, decreased activity tolerance and best to go to skilled rehab at this time. Pt is very motivated and cooperative to get better. Goals Grooming Goal Independent Dressing Goal Independent Toileting Goal Independent Bathing Goal Standby Assistance Toilet Transfer Goal Independent Shower Transfer Goal Standby Assistance Days to Meet Goals 20 Frequency of Treatment Other frequency 5x/week Treatment Plan OT Treatment Plan ADL Training,Functional Mobility,Patient/Family Education,Discharge Planning Other Treatment Recommendations and Next Standing ADL with FWW. Treatment Focus Discharge Recommendations OT Discharge Recommendations SNF Rehab Transportation Needs at Discharge Wheelchair/Cabulance
[2024-05-30 15:32] LABS: BUN Creatinine Ratio 28.7 (6-22); Blood Urea Nitrogen 56 mg/dL (9-20); Calcium 8.4 mg/dL (8.4-10.2); Carbon Dioxide 13 mmol/L (22-32); Chloride 117 mmol/L (98-107); Estimated Glomerular Filt Rate 35 mL/min (>60); Glucose 100 mg/dL (80-110); HEMOLYSIS < 15 (0-50); Potassium 3.4 mmol/L (3.4-5.1); Sodium 141 mmol/L (137-145)
[2024-05-30 16:00] VITALS: BP 100/64; PULSE 84; RESP 16; TEMP 36.6; O2SAT 98
[2024-05-30 16:28] LABS: Adenovirus F 40/41 Not Detected (Not Detect); Astrovirus Not Detected (Not Detect); Campylobacter Not Detected (Not Detect); Clostridium difficile toxin AB Not Detected (Not Detect); Cryptosporidium Not Detected (Not Detect); Cyclospora cayetanensis Not Detected (Not Detect); Entamoeba histolytica Not Detected (Not Detect); Enteroaggregative E.coli Not Detected (Not Detect); Enteropathogenic E.coli Not Detected (Not Detect); Enterotoxigenic E.coli It/st Not Detected (Not Detect); Giardia lamblia Not Detected (Not Detect); Norovirus GI/GII Not Detected (Not Detect); Plesiomonsa shigelloides Not Detected (Not Detect); Rotavirus A Not Detected (Not Detect); Salmonella Not Detected (Not Detect); Sapovirus Not Detected (Not Detect); Shiga-like toxin-prod E.coli Not Detected (Not Detect); Shigella/Enteroinvasive E.coli Not Detected (Not Detect); Vibrio Not Detected (Not Detect); Vibrio cholerae Not Detected (Not Detect); Yersinia enterocolitica Not Detected (Not Detect)
[2024-05-30] MEDS: SODIUM BICARB 8.4% VIAL 150 MEQ in DEXTROSE 5% WATER 1,000 ML 75 MEQ IV (16:44)
[2024-05-30 20:00] VITALS: BP 110/54; PULSE 86; RESP 18; O2SAT 99
[2024-05-30] MEDS: DIPHENOXYLATE/ATROP 2.5/0.025 TABLET 1 EACH PO (21:00)
[2024-05-31] VITALS: BP 111/58; PULSE 87; RESP 17; TEMP 36.7; O2SAT 98; O2SAT 99
[2024-05-31 04:00] VITALS: BP 129/63; PULSE 82; RESP 19; O2SAT 100
--- NOTE | 2024-05-31 05:19 | PC.NURSE ---
Patient removed Telemetry at 0500. Patient states he does not want any monitors on him. Explained purpose of Telemetry, but patient still refused.
[2024-05-31 06:03] LABS: Add Manual Diff / Slide Review NO; Basophils Absolute Auto 0 /uL (0-100); Basophils Percent Auto 0.3 % (0-2); Eosinophils Absolute Auto 100 /uL (0-450); Eosinophils Percent Auto 0.9 % (2-4); Hematocrit 28.9 % (41-53); Hemoglobin 9.8 g/dL (13.5-17.5); Lymphocytes Absolute Auto 900 /uL (1100-4500); Lymphocytes Percent Auto 8.5 % (25-40); Mean Corpuscular HGB Conc 33.7 % (30-36); Mean Corpuscular Volume 88.9 fL (80-100); Monocytes Absolute Auto 500 /uL (0-900); Monocytes Percent Auto 4.8 % (3-14); Neutrophils Absolute Auto 8700 /uL (1500-7000); Neutrophils Percent Auto 85.5 % (50-75); Platelet Count 235 X10^3/uL (150-400); Red Blood Cell Count 3.25 X10^6/uL (4.5-5.9); Red Cell Distribution Width 19.7 % (11.6-14.8); White Blood Cell Count 10.2 X10^3/uL (4.5-11.0)
[2024-05-31 06:15] LABS: BUN Creatinine Ratio 31.7 (6-22); Blood Urea Nitrogen 53 mg/dL (9-20); Calcium 8.4 mg/dL (8.4-10.2); Carbon Dioxide 18 mmol/L (22-32); Chloride 113 mmol/L (98-107); Estimated Glomerular Filt Rate 43 mL/min (>60); Glucose 115 mg/dL (80-110); HEMOLYSIS < 15 (0-50); Potassium 3.1 mmol/L (3.4-5.1); Sodium 140 mmol/L (137-145)
--- NOTE | 2024-05-31 07:41 | PM.PN.1 ---
Subjective Subjective Date Patient Seen: 05/31/24 Time Patient Seen: 08:30 Interval history: Summary: Admitted with weight loss, GREG, urinary retention, and hypokalemia. His in the summertime. He has been having some diarrhea here, which is new. He requested an antidiarrheal medication. Also did note that to women were trying to street him and plant a transmitter into his body. Other than that everybody else has been very kind and helpful in his care. S: Diarrhea has improved. He has no significant complaints today. His daughter is coming in tonight. He appears mildly confused about recent events. He removed his IV overnight. He does not recall this. Exam Vital Signs (past 8 hours): - 05/31/24 00:00 05/31/24 00:00 05/31/24 04:00 Temperature 98.0 F Pulse Rate 87 82 Respiratory Rate 17 19 Blood Pressure 111/58 L 129/63 Pulse Oximetry 99 98 100 Oxygen Delivery Method Room Air 05/31/24 04:00 Temperature Pulse Rate Respiratory Rate Blood Pressure Pulse Oximetry 100 Oxygen Delivery Method Room Air Oxygen Delivery Method Room Air Oxygen Flow Rate 0 Narrative Exam Narrative: NAD, alert and oriented. Fluent speech. Cachectic with facial and extremity wasting. Lungs are clear, normal rate and effort. Heart is regular, no murmur gallop or rub. Abdomen is soft, non distended. Extremities are free of edema. Hematuria in [place], dark red Objective Labs 05/31/24 04:40 05/31/24 04:40 Labs: Laboratory Results - last 24 hr 05/30/24 05/30/24 05/31/24 14:10 15:10 04:40 WBC 10.2 RBC 3.25 L Hgb 9.8 L Hct 28.9 L MCV 88.9 MCH 30.0 MCHC 33.7 RDW 19.7 H Plt Count 235 Neut % (Auto) 85.5 H Lymph % (Auto) 8.5 L [place] % (Auto) 4.8 Eos % (Auto) 0.9 L Baso % (Auto) 0.3 Neut # (Auto) 8700 H Lymph # (Auto) 900 L [place] # (Auto) 500 Eos # (Auto) 100 Baso # (Auto) 0 Sodium 141 140 Potassium 3.4 3.1 L Chloride 117 H 113 H Carbon Dioxide 13 L 18 L BUN 56 H 53 H Creatinine 1.95 H 1.67 H Estimated GFR 35 L 43 L BUN/Creatinine Ratio 28.7 H 31.7 H Glucose 100 115 H Calcium 8.4 8.4 Stl C. cayetanensis PCR Not detected Stool Rotavirus (PCR) Not detected Stool Adenovirus (PCR) Not detected Stool Astrovirus (PCR) Not detected Stool Cryptosporidium PCR Not detected Stl E.coli Shiga Tox PCR Not detected St Sh/Enteroin Ecoli PCR Not detected Stl Enterotoxigenic E PCR Not detected Stool EPEC (PCR) Not detected Stl E. histolytica PCR Not detected Stool Giardia Lamblia PCR Not detected Stool Sapovirus (PCR) Not detected Stl P. shigelloides PCR Not detected St Y.enterocolitica PCR Not detected Stool Vibrio (PCR) Not detected Stl Vibrio cholerae PCR Not detected Stl Enteroaggr Ecoli PCR Not detected Stl Norovirus GI/GII PCR Not detected Campylobacter (PCR) Not detected C. difficile Tox (PCR) Not detected Salmonella (PCR) Not detected PFSH Medical History Normocytic anemia Kidney failure Fatigue Shortness of breath on exertion History of testicular cancer Early satiety Hoarseness Frequent urination Weight loss Surgical History History of cataract surgery Social History household members: none Smoking Status: Former smoker alcohol intake: former Assessment & Plan Assessment & Plan narrative: 1. GREG, present on admission and improving, due to postop obstructive uropathy.. 2. Hypokalemia, present on admission and active. 3. Urine retention with Corral placed in the ED, present on admission and active. 4. DM 2, present on admission and active. Diet controlled, with hemoglobin A1c 5.1% on 05/08/2024. 5. Hypertension, present on admission and active. 6. Hyperlipidemia, present on admission and active. 7. Remote testicular cancer. 8. Recent loss of in March. 9. Hypo magnesemia, new and active. Corrected. 10. Hematuria in Corral after placement of Corral catheter. Likely traumatic. 11. Anemia, likely multifactorial. 12. Some paranoid thoughts, new and active. 13. Anemia, new and active. 14. Hypokalemia. Replete intravenously. PLAN: -Corral decompression for GREG and urine retention. This is largly obstructive renal failure. Occasional bladder scans to rule out retention due to hematuria. -we will continue IV fluids in case there is a hypovolemic component. Switching to sodium bicarb 4 hyperchloremia correction. -monitoring and replace potassium slowly. Magnesium replacement today. -slide scale correctional insulin and assess his insulin need. -monitor blood pressure, hold meds for now. We will continue to hold given his soft blood pressures. -TSH is mildly elevated, no active changes at this point. -monitor hematuria and bladder scan twice a day to rule out retention from clots. Monitor hemoglobin. -physical therapy assessment. -he will need outpatient urology follow-up. WILLIE is 06/01 Anticipate a 2 midnight medical necessity for hospital care to correct his acute medical problems. Time-Based Coding :: [TOTAL MINUTES] spent with patient and on the chart (including review of chart, obtaining history, exam, reviewing outside data, placing orders, documenting exam and treatment plan, and counseling patient) on [DATE]. Quality VTE Deep Vein Thrombosis/Pulmonary Embolism Present on Admission: No IH PROFEE Charge codes Subsequent inpatient/observation care: 12608
[2024-05-31 08:00] VITALS: BP 90/52; PULSE 92; RESP 16; TEMP 36.7; O2SAT 100; O2SAT 93
[2024-05-31] MEDS: HEPARIN 5,000 UNIT/ML VIAL 5000 UNIT SUBCUT ×2 (08:15→20:20)
[2024-05-31] MEDS: THIAMINE 100 MG TABLET PO (08:15)
[2024-05-31] MEDS: LOPERAMIDE 2 MG CAPSULE PO ×2 (08:33→20:20)
[2024-05-31 09:27] LABS: Magnesium 1.8 mg/dL (1.6-2.3)
[2024-05-31] MEDS: SODIUM CHLORIDE 0.9% 1,000 ML 100 ML IV (10:27)
[2024-05-31] MEDS: POTASSIUM CHLORIDE IN WATER 10 MEQ/100 ML PIGGYBACK 100 MEQ IV ×4 (10:30→17:19)
--- NOTE | 2024-05-31 10:30 | PT.IPTN ---
Current Diagnoses Acute kidney failure, unspecified (05/28/24) Physical Therapy Treatment Note M2 PT-IP Current Condition Start: 05/30/24 12:25 Freq: NEEDED Status: Active Protocol: Document 05/30/24 12:20 MB (Rec: 05/30/24 13:11 MB [id number]) Physical Therapy Current Condition Current Condition Evaluation Date 05/30/24 Treatment Diagnosis Excessive weight loss, GREG, weakness M3 PT-IP Subjective Start: 05/30/24 12:25 Freq: NEEDED Status: Active Protocol: Document 05/31/24 11:31 TS (Rec: 05/31/24 12:05 TS [id number]) Subjective Physical Therapy Visit Type Type Treatment Note Visit Start Time 10:30 Visit Stop Time 11:00 Number of ALTERATIONS EXPERT Visits 1 Physical Therapy Visit Comments Patient Comments Pt found resting in bed, in a pleasant mood, reports chronic pain. He is agreeable to PT. Therapy Pain Assessment Pain When Pain Assessed At Rest Pain Present Pain Present Pain Reported M4 PT-IP Mobility and Gait Start: 05/30/24 12:25 Freq: NEEDED Status: Active Protocol: Document 05/31/24 11:31 TS (Rec: 05/31/24 12:05 TS [id number]) PT-Bed Mobility Assessment Rolling Type of Rolling Roll to Right Level of Assist Standby Assistance Supine to Sit Supine to Sit Standby Assistance,Bedrails Sit to Supine Sit to Supine Standby Assistance,Bedrails Scooting Scooting to Edge of Bed Standby Assistance PT-Transfer Assessment Sit to and From Stand Sit to and from Stand Contact Guard Assistance,1 Person Assistance Equipment Transfer Assistive Device Gait Belt,Front Wheeled Walker Orthotic/Prosthetic Devices or Brace: No Comments Mobility Comments Supine to sit SBA with HOB elevated. Pt scoots slowly to EOB with BUE support. STS with FWW SBA. Pt ambulates ~15' in the room, fatigues quickly with gait and requests to sit back in the bed. Sit to supine into bed SBA, pt scoots to HOB with cues for rails. Pt was left in the bed, all needs met. Gait Assessment Gait Gait Assistance Required: Standby Assistance,Contact Guard Assist Distance (Feet) 15 Assistive Devices Assistive Device Gait Belt,Front Wheeled Walker Gait Deviations General Gait Pattern Decreased Stride Length, Decreased Feet Clearance Factors Limiting Gait Function Factors Limiting Gait Function Decreased Activity Tolerance, Decreased Strength,Poor Balance,Poor Safety Awareness Comments Gait Comments See mobility comments PT-Balance Assessment Sitting Balance and Reactions Static Sitting Balance Ability Good Dynamic Sitting Balance Ability Fair Standing Balance and Reactions Static Standing Balance Ability Fair Dynamic Standing Balance Ability Fair Device Used Gait belt CGA M5 PT-IP Objective Assessments Start: 05/30/24 12:25 Freq: NEEDED Status: Active Protocol: Document 05/30/24 12:20 MB (Rec: 05/30/24 13:11 MB [id number]) Orientation Orientation/Cognition Level of Alertness Alert Orientation Name,Age,Birthday,Month,Date, Year,Day of Week,Place, Situation Language Function Ability No Deficits Noted Safety Awareness Decreased Safety Awareness Memory Description No Deficits Noted Gross Range of Motion Upper Extremity ROM Impairments Defer to OT Lower Extremity ROM Assessment Within Functional Limits Impairments Cachexia and decreased muscle mass and pt cannot tolerate ROM or MMT today Strength Lower Extremity Strength Assessment Within Functional Limits Comments Strength Comments See comments above. Can MMT a later date. Coordination Assessment Assessment Coordination Comments Did not test today. Sensation Assessment Comments Sensation Comments Did not test today. M7 PT-IP Assessment and Plan Start: 05/30/24 12:25 Freq: NEEDED Status: Active Protocol: Document 05/31/24 11:31 TS (Rec: 05/31/24 12:05 TS [id number]) PT Summary Assessment and Plan Potential Rehabilitation Potential Good Summary Impairments ROM,Strength,Balance,Bed Mobility,Transfers,Gait, Activity Tolerance Progress Towards Goals Slow Progress due to Activity Tolerance Assessment Summary Colin is making slow progress with hid mobility due to poor activity tolerance. He continues to be SBA for all bed mobility. He ambulates short distances in the room and quickly fatigues. PT continues to recommend SNF to improve activity tolerance. Goals Bed Mobility Goal Independent Transfer Goal Independent,Cane,Front Wheeled Walker Gait Goal Independent,Cane,Front Wheel Walker Gait Distance 75 Other Goals Pt will ascend and descend flight of steps with two rails or cane and one rail to allow safe home entry. Days to Meet Goals 10 Frequency of Treatment Frequency Of Treatment Once a Day Treatment Plan Physical Therapy Treatment Plan Bed Mobility Training,Transfer Training,Gait Training, Therapeutic Exercise,Balance Retraining,Discharge Planning, Hot or Cold Pack,Neuromuscular Re-ed,Coordination Retraining ,Manual Therapy Precautions Other Precautions Diarrhea and stool sample sent off, falls Weight Bearing Status Allowed Weight Bearing Amount (enter % No restrictions or #) (%) Recommendations To Nursing Amount of Assist Needed 1 Person Assist Discharge Recommendations PT Discharge Recommendations SNF Rehab Transportation Needs at Discharge Private Vehicle,Wheelchair/ Cabulance
--- NOTE | 2024-05-31 10:32 | CM.DPNOTE ---
Addendum entered by Kellen Fernandez, HEAD OF STORE OPERATIONS 05/31/24 13:02: ADD: Lashell at [facility] cannot accept as patient's insurance benefits will not cover out of network facilities ([facility]). Stephani at [facility] responded, unsure they could accommodate patient at this time. Updated Stephani that patient is likely to DC to [facility], will re-refer as needed. Addendum entered by Kellen Fernandez, HEAD OF STORE OPERATIONS 05/31/24 10:44: ADD: Chrystal at [facility] accepts patient for admission and plans to start SNF auth today. Patient has [facility]. Original Note: DCP Cont Reviewed chart. Therapies recommending SNF. Met with patient to review discharge plan and discuss therapy recommendations. Patient is looking forward to having his daughter Ty visit, she is scheduled to arrive this evening. Discussed SNF choices and the process of obtaining a SNF auth from his insurance. Patient agreeable to planning for SNF and requests [facility] and [facility]. ALICIA Melo, kindly agreed to send these SNF referrals. Plan: Discharge to SNF anticipated; accepting SNF and secured SNF auth needed. Anticipate meeting with patient and his daughter Monday to review short term and prison planning. Hospital exempt PASRR has been completed, needs provider signature. Patient on ativan for anxiety and agitation as needed although patient has not needed a dose since 05.30.24 at 0057 in the morning. CM team following closely. ACACIA
--- NOTE | 2024-05-31 10:34 | DIET.PN1 ---
Dietary Progress Note Assessment: Met w/ pt. Po intakes gradually increasing. Doesn't want smoothies or Ensure anymore d/t being too sweet. Discussed protein-based foods he would be interested in instead or making a less sweet protein smoothie. Coordinated with unit host. Pharmacy repleting K+ per protocol. Ht: 165.1 cm Wt: 41.5 kg BMI: 15.2 Last BM: 05/30/24 (05/30/24 14:06) MNA: 4 Pradip Score: 19 Diet: 05/28/24 Dinner General (Regular) Diet Diet Modifications: Nutrition Percent Meal Consumed 50% 05/31/24 09:00 Percent Meal Consumed 50% 05/30/24 18:00 Percent Meal Consumed 50% 05/30/24 08:00 Percent Meal Consumed 25% 05/29/24 18:00 Percent Meal Consumed 10 05/29/24 12:40 Labs: RBC 3.25 X10^6/uL (4.5-5.9) L 05/31/24 04:40 Hgb 9.8 g/dL (13.5-17.5) L 05/31/24 04:40 Hct 28.9 % (41-53) L 05/31/24 04:40 Creatinine 1.67 mg/dL (0.66-1.25) H 05/31/24 04:40 Lactate 1.1 mmol/L (0.7-2.1) 05/28/24 14:20 Electronically Signed by: Mally Yang 05/31/24 10:34 Clinical Dietitian [address] [id number]
--- NOTE | 2024-05-31 11:10 | OT.IP.TRT ---
Current Diagnoses Acute kidney failure, unspecified (05/28/24) Occupational Therapy Treatment Note M2 OT-IP Current Condition Start: 05/30/24 14:01 Freq: Status: Active Protocol: Document 05/30/24 14:02 [facility] (Rec: 05/30/24 14:13 [facility] [id number]) Occupational Therapy Current Condition Current Condition Evaluation Date 05/30/24 Treatment Diagnosis GREG, generalized weakness, urine retention Diagnosis Onset Date 05/28/24 M3 OT- IP Subjective and Pain Start: 05/30/24 14:01 Freq: Status: Active Protocol: Document 05/31/24 11:47 [facility] (Rec: 05/31/24 11:55 [facility] [id number]) OT- Subjective Occupational Therapy Visit Type Type Treatment Note Visit Start Time 11:10 Visit Stop Time 11:20 Occupational Therapy Visit Comments Patient Comments Pt agreed to do SLUMS while in bed. Patient/Caregiver Goals To get better. M4 OT- IP ADL's Start: 05/30/24 14:01 Freq: Status: Active Protocol: Document 05/30/24 14:02 [facility] (Rec: 05/30/24 14:13 [facility] [id number]) OT [id number] Comments OT Self-Feeding Comments Not at meal time. Pt states has been eat but minimally. OT ADL-Grooming Comments OT Grooming Comments Not performed. OT ADL-Oral Care Comments Oral Care Comments Not performed. OT ADL-Dressing General Eval Lower Body Dressing Ability Moderate Assistance Comments OT Dressing Comments Assist for socks and clothing especially when standing due to decreased balance. OT ADL-Toileting General Evaluation Toileting Ability Total Assistance Comments OT Toileting Comments Corral in place. OT ADL-Bathing Comments OT Bathing Comments NOt performed as pt too tired. Pt states has been sponging off at home due to decreased vision. M5 OT- IP IADL's Start: 05/30/24 14:01 Freq: Status: Active Protocol: Document 05/30/24 14:02 [facility] (Rec: 05/30/24 14:13 [facility] [id number]) OT-Instrumental Activities of Daily Living Deficits IADL Deficits Identified Deficits Home Safety Awareness Awareness of Need for Assistance at Home Good Awareness Home Safety Comments Pt states does not have his new glasses and therefore not able to see well. Medication Management Medication Management Comments Pt would benefit from assist due to poor vision. Money Management Money Management Comments Pt will need assist. Meal Preparation Meal Preparation Comments Pt will need assist. Nutritionalist Nutritionalist Comments Pt will need assist. M6 OT- IP Functional Cognition Start: 05/30/24 14:01 Freq: Status: Active Protocol: Document 05/31/24 11:47 [facility] (Rec: 05/31/24 11:55 [facility] [id number]) Cognitive Factors Limiting Selfcare Function Cognitive Ability Level of Alertness Alert Patient Orientation Name,Age,Birthday,Month,Date, Year,Day of Week,Place, Situation Attention Span Ability Capable of Focused Attention, Capable of Sustained Attention Ability to Follow Commands Able to Follow Multi-Step Commands Cognitive Tests SLUMS Pt scored 29/30 which implies normal for cognition. Pt able to recall 4/5 objects after time passed. Cognitive Comments Cognitive Assessment Comments Pt able to answer all home safety situation with increased time and scored 29/ 30 on the SLUMS which implies normal for pt's cognition. M8 OT- IP Objective Assessments Start: 05/30/24 14:01 Freq: Status: Active Protocol: Document 05/30/24 14:02 [facility] (Rec: 05/30/24 14:13 [facility] [id number]) OT Gross Range of Motion Upper Extremity Range of Motion Assessment Within Functional Limits OT Strength Upper Extremity Strength Assessment Within Functional Limits Hand [employer]ing [employer]posite [employer]ricator Strength Hand Dominance Right OT- Coordination Assessment Upper Extremity Finger to Nose Test Within Functional Limits M9 OT- IP Assessment and Plan Start: 05/30/24 14:01 Freq: Status: Active Protocol: Document 05/31/24 11:47 [facility] (Rec: 05/31/24 11:55 [facility] [id number]) OT Summary Assessment and Plan Potential Rehabilitation Potential Good Analytic Complexity at Evaluation Moderate Summary OT Impairments Pain,Strength,Balance, Functional Mobility,Grooming, Dressing,Toileting,Bathing, Toilet Transfers,Shower Transfers,Activity Tolerance Progress Towards Goals Slow Progress due to Pain,Slow Progress due to Activity Tolerance Assessment Summary Pt scored 29/30 on the SLUMS which normal for cognition. Pt will benefit from skilled rehab. Goals Grooming Goal Independent Dressing Goal Independent Toileting Goal Independent Bathing Goal Standby Assistance Toilet Transfer Goal Independent Shower Transfer Goal Standby Assistance Days to Meet Goals 19 Frequency of Treatment Other frequency 5x/week Treatment Plan OT Treatment Plan ADL Training,Functional Mobility,Patient/Family Education,Discharge Planning Other Treatment Recommendations and Next Standing ADL with FWW. Treatment Focus Discharge Recommendations OT Discharge Recommendations SNF Rehab Transportation Needs at Discharge Wheelchair/Cabulance
[2024-05-31 12:00] VITALS: BP 94/54; PULSE 88; RESP 15; TEMP 36.7; O2SAT 100
[2024-05-31 16:00] VITALS: BP 109/54; PULSE 88; RESP 18; TEMP 36.8; O2SAT 100
[2024-05-31 20:00] VITALS: BP 103/56; PULSE 89; RESP 18; TEMP 37.2; O2SAT 100
[2024-06-01] VITALS (8 sets, daily range): BP systolic 90–124; BP diastolic 40–55; PULSE 67–92; RESP 14–19; TEMP 36.2–36.7; O2SAT 95–100
[2024-06-01] MEDS: SODIUM CHLORIDE 0.9% 1,000 ML 100 ML IV (03:44)
[2024-06-01 06:27] LABS: Add Manual Diff / Slide Review NO; Basophils Absolute Auto 0 /uL (0-100); Basophils Percent Auto 0.1 % (0-2); Eosinophils Absolute Auto 100 /uL (0-450); Eosinophils Percent Auto 0.9 % (2-4); Hematocrit 26.7 % (41-53); Lymphocytes Absolute Auto 800 /uL (1100-4500); Mean Corpuscular HGB Conc 33.6 % (30-36); Mean Corpuscular Hemoglobin 30.1 PG (26-34); Mean Corpuscular Volume 89.6 fL (80-100); Monocytes Absolute Auto 500 /uL (0-900); Monocytes Percent Auto 4.8 % (3-14); Neutrophils Absolute Auto 8300 /uL (1500-7000); Neutrophils Percent Auto 86.2 % (50-75); Platelet Count 229 X10^3/uL (150-400); Red Blood Cell Count 2.99 X10^6/uL (4.5-5.9); Red Cell Distribution Width 19.5 % (11.6-14.8); White Blood Cell Count 9.7 X10^3/uL (4.5-11.0)
[2024-06-01 06:37] LABS: BUN Creatinine Ratio 33.1 (6-22); Blood Urea Nitrogen 40 mg/dL (9-20); Carbon Dioxide 17 mmol/L (22-32); Chloride 117 mmol/L (98-107); Estimated Glomerular Filt Rate > 60 mL/min (>60); Glucose 83 mg/dL (80-110); HEMOLYSIS < 15 (0-50); Potassium 3.7 mmol/L (3.4-5.1); Sodium 140 mmol/L (137-145)
--- NOTE | 2024-06-01 08:56 | PM.PN.1 ---
Subjective Subjective Date Patient Seen: 06/01/24 Time Patient Seen: 08:10 Interval history: Summary: Admitted with weight loss, GREG, urinary retention, and hypokalemia. His in the summertime. He has been having some diarrhea here, which is new. He requested an antidiarrheal medication. Also did note that to women were trying to street him and plant a transmitter into his body. Other than that everybody else has been very kind and helpful in his care. S: Diarrhea has resolved. He has no significant complaints today. His daughter is coming in this morning for his birthday. He appears mildly confused about recent events. Exam Vital Signs (past 8 hours): - 06/01/24 01:48 06/01/24 01:48 06/01/24 08:23 Temperature 97.3 F L 97.2 F L Pulse Rate 76 92 H Respiratory Rate 18 14 Blood Pressure 109/55 L 90/50 L Pulse Oximetry 100 100 99 Oxygen Delivery Method Room Air Oxygen Flow Rate 0 0 Oxygen Delivery Method Room Air Oxygen Flow Rate 0 Narrative Exam Narrative: NAD, alert and oriented. Fluent speech. Cachectic with facial and extremity wasting. Lungs are clear, normal rate and effort. Heart is regular, no murmur gallop or rub. Abdomen is soft, non distended. Extremities are free of edema. Hematuria in [place], light red Objective Labs 06/01/24 05:40 06/01/24 05:40 Labs: Laboratory Results - last 24 hr 05/31/24 06/01/24 04:40 05:40 WBC 9.7 RBC 2.99 L Hgb 9.0 L Hct 26.7 L MCV 89.6 MCH 30.1 MCHC 33.6 RDW 19.5 H Plt Count 229 Neut % (Auto) 86.2 H Lymph % (Auto) 8.0 L Gray % (Auto) 4.8 Eos % (Auto) 0.9 L Baso % (Auto) 0.1 Neut # (Auto) 8300 H Lymph # (Auto) 800 L Gray # (Auto) 500 Eos # (Auto) 100 Baso # (Auto) 0 Sodium 140 Potassium 3.7 Chloride 117 H Carbon Dioxide 17 L BUN 40 H Creatinine 1.21 Estimated GFR > 60 BUN/Creatinine Ratio 33.1 H Glucose 83 Calcium 8.0 L Magnesium 1.8 [facility] Medical History Normocytic anemia Kidney failure Fatigue Shortness of breath on exertion History of testicular cancer Early satiety Hoarseness Frequent urination Weight loss Surgical History History of cataract surgery Social History household members: none Smoking Status: Former smoker alcohol intake: former Assessment & Plan Assessment & Plan narrative: 1. GREG, present on admission, due to postop obstructive uropathy, resolved. 2. Hypokalemia, present on admission and resolved. 3. Urine retention with Corral placed in the ED, present on admission and active. 4. DM 2, present on admission and active. Diet controlled, with hemoglobin A1c 5.1% on 05/08/2024. 5. Hypertension, present on admission and active, remaining low off home medication. 6. Hyperlipidemia, present on admission and active. 7. Remote testicular cancer. 8. Recent loss of in March. 9. Hypo magnesemia, new and active. Corrected. 10. Hematuria in Corral after placement of Corral catheter. Likely traumatic. 11. Anemia, likely multifactorial. 12. Some paranoid thoughts, new and active. 13. Anemia, new and active. 14. Hypokalemia. Replete intravenously. PLAN: -Corral decompression for GREG and urine retention. -Discontinue IV fluids -monitor blood pressure, hold meds for now. -TSH is mildly elevated, no active changes at this point. -monitor hematuria and bladder scan twice a day to rule out retention from clots. Monitor hemoglobin. -physical therapy assessment. -he will need outpatient urology follow-up. -plan for SNF placement WILLIE is 06/01 Anticipate a 2 midnight medical necessity for hospital care to correct his acute medical problems. Time-Based Coding :: [TOTAL MINUTES] spent with patient and on the chart (including review of chart, obtaining history, exam, reviewing outside data, placing orders, documenting exam and treatment plan, and counseling patient) on [DATE]. Quality VTE Deep Vein Thrombosis/Pulmonary Embolism Present on Admission: No IH PROFEE Charge codes Subsequent inpatient/observation care: 46367
[2024-06-01] MEDS: THIAMINE 100 MG TABLET PO (09:39)
[2024-06-01] MEDS: HEPARIN 5,000 UNIT/ML VIAL 5000 UNIT SUBCUT ×2 (09:39→20:20)
[2024-06-01] MEDS: LOPERAMIDE 2 MG CAPSULE PO ×2 (10:05→18:02)
--- NOTE | 2024-06-01 11:50 | PT.IPTN ---
Current Diagnoses Acute kidney failure, unspecified (05/28/24) Physical Therapy Treatment Note M2 PT-IP Current Condition Start: 05/30/24 12:25 Freq: NEEDED Status: Active Protocol: Document 05/30/24 12:20 MB (Rec: 05/30/24 13:11 MB [id number]) Physical Therapy Current Condition Current Condition Evaluation Date 05/30/24 Treatment Diagnosis Excessive weight loss, GREG, weakness M3 PT-IP Subjective Start: 05/30/24 12:25 Freq: NEEDED Status: Active Protocol: Document 06/01/24 12:34 TS (Rec: 06/01/24 12:45 TS [id number]) Subjective Physical Therapy Visit Type Type Treatment Note Visit Start Time 11:50 Visit Stop Time 12:30 Number of INTERNAL CONTROL SPECIALIST Visits 2 Physical Therapy Visit Comments Patient Comments Pt found resting in bed, daughter in the room, he is agreeable to PT. M4 PT-IP Mobility and Gait Start: 05/30/24 12:25 Freq: NEEDED Status: Active Protocol: Document 06/01/24 12:34 TS (Rec: 06/01/24 12:45 TS [id number]) PT-Bed Mobility Assessment Rolling Type of Rolling Roll to Right Level of Assist Standby Assistance Sit to Supine Sit to Supine Standby Assistance,Bedrails Scooting Scooting to Edge of Bed Standby Assistance PT-Transfer Assessment Sit to and From Stand Sit to and from Stand Contact Guard Assistance,1 Person Assistance Equipment Transfer Assistive Device Gait Belt,Front Wheeled Walker Orthotic/Prosthetic Devices or Brace: No Comments Mobility Comments Supine to sit SBA with BUE support. BP in sitting 84/41. STS with FWW SBA. He ambulated in the room 2x30'SBA, pt fatigues quickly with gait. Sit to supine into bed SBA with handrail support. Pt was left in bed, all needs met. Gait Assessment Gait Gait Assistance Required: Standby Assistance,Contact Guard Assist Distance (Feet) 60 Assistive Devices Assistive Device Gait Belt,Front Wheeled Walker Orthotic/Prosthetic Devices or Brace: No Gait Deviations General Gait Pattern Decreased Stride Length, Decreased Feet Clearance Factors Limiting Gait Function Factors Limiting Gait Function Decreased Activity Tolerance, Decreased Strength,Poor Balance,Poor Safety Awareness Comments Gait Comments See mobility comments PT-Balance Assessment Sitting Balance and Reactions Static Sitting Balance Ability Good Dynamic Sitting Balance Ability Fair Standing Balance and Reactions Static Standing Balance Ability Fair Dynamic Standing Balance Ability Fair Device Used FWW M5 PT-IP Objective Assessments Start: 05/30/24 12:25 Freq: NEEDED Status: Active Protocol: Document 05/30/24 12:20 MB (Rec: 05/30/24 13:11 MB [id number]) Orientation Orientation/Cognition Level of Alertness Alert Orientation Name,Age,Birthday,Month,Date, Year,Day of Week,Place, Situation Language Function Ability No Deficits Noted Safety Awareness Decreased Safety Awareness Memory Description No Deficits Noted Gross Range of Motion Upper Extremity ROM Impairments Defer to OT Lower Extremity ROM Assessment Within Functional Limits Impairments Cachexia and decreased muscle mass and pt cannot tolerate ROM or MMT today Strength Lower Extremity Strength Assessment Within Functional Limits Comments Strength Comments See comments above. Can MMT a later date. Coordination Assessment Assessment Coordination Comments Did not test today. Sensation Assessment Comments Sensation Comments Did not test today. M7 PT-IP Assessment and Plan Start: 05/30/24 12:25 Freq: NEEDED Status: Active Protocol: Document 06/01/24 12:34 TS (Rec: 06/01/24 12:45 TS [id number]) PT Summary Assessment and Plan Potential Rehabilitation Potential Good Summary Impairments ROM,Strength,Balance,Bed Mobility,Transfers,Gait, Activity Tolerance Progress Towards Goals Slow Progress due to Activity Tolerance Assessment Summary Colin continues to be limited in his mobility due to poor activity tolerance. He continues to be SBA for most mobility. He fatigues quickly with ambulation and requires frequent rest breaks. PT is recommending SNF at this time. Goals Bed Mobility Goal Independent Transfer Goal Independent,Cane,Front Wheeled Walker Gait Goal Independent,Cane,Front Wheel Walker Gait Distance 75 Other Goals Pt will ascend and descend flight of steps with two rails or cane and one rail to allow safe home entry. Days to Meet Goals 10 Frequency of Treatment Frequency Of Treatment Once a Day Treatment Plan Physical Therapy Treatment Plan Bed Mobility Training,Transfer Training,Gait Training, Therapeutic Exercise,Balance Retraining,Discharge Planning, Hot or Cold Pack,Neuromuscular Re-ed,Coordination Retraining ,Manual Therapy Precautions Other Precautions Diarrhea and stool sample sent off, falls Weight Bearing Status Allowed Weight Bearing Amount (enter % No restrictions or #) (%) Recommendations To Nursing Amount of Assist Needed 1 Person Assist Discharge Recommendations PT Discharge Recommendations SNF Rehab Transportation Needs at Discharge Private Vehicle,Wheelchair/ Cabulance
[2024-06-01 15:35] LABS: Prostate Specific Antigen 996 ng/mL (0.10-4.00)
[2024-06-02] VITALS (9 sets, daily range): BP systolic 96–105; BP diastolic 34–54; PULSE 90–97; RESP 12–17; TEMP 36.7–37.1; O2SAT 93–100
[2024-06-02] MEDS: LOPERAMIDE 2 MG CAPSULE PO ×3 (01:46→19:41)
--- NOTE | 2024-06-02 09:17 | P.PN_ITS ---
Subjective Subjective Date Patient Seen: 06/02/24 Time Patient Seen: 07:45 Interval history: Summary: Admitted with weight loss, GREG, urinary retention, and hypokalemia. His in the summertime. He has been having some diarrhea here, which is new. He requested an antidiarrheal medication. Also did note that to women were trying to street him and plant a transmitter into his body. Other than that everybody else has been very kind and helpful in his care. S: PSA returned 996. He is informed of this and steps to take to confirm the diagnosis. I will accept whatever you think needs to be done to treat this. He is subsequently seen with his daughter and expresses considerable frustration but states he does wish to proceed with diagnosis and treatment. No new complaints. Exam Vital Signs (past 8 hours): - 06/02/24 05:00 06/02/24 06:00 Temperature 98.1 F Pulse Rate 90 Respiratory Rate 14 Blood Pressure 101/54 L Pulse Oximetry 99 99 Oxygen Delivery Method Room Air Oxygen Delivery Method Room Air Oxygen Flow Rate 0 Narrative Exam Narrative: NAD, alert and oriented. Fluent speech. Cachectic with facial and extremity wasting. Lungs are clear, normal rate and effort. Heart is regular, no murmur gallop or rub. Abdomen is soft, non distended. Extremities are free of edema. Yellow and clear urine in Corral bag. Objective Labs 06/01/24 05:40 06/01/24 05:40 Labs: Laboratory Results - last 24 hr 06/01/24 05:40 Prostate Specific Ag 996 H PFS Medical History Normocytic anemia Kidney failure Fatigue Shortness of breath on exertion History of testicular cancer Early satiety Hoarseness Frequent urination Weight loss Surgical History History of cataract surgery Social History household members: none Smoking Status: Former smoker alcohol intake: former Assessment & Plan Assessment & Plan narrative: 1. GREG, present on admission, due to postop obstructive uropathy due to presumed prostate cancer, resolved. 2. Elevated PSA 996 due to presumed metastatic prostate cancer. Plan for outpatient urology consult and biopsy. 3. Hypokalemia, present on admission and resolved. 4. Urine retention with Corral placed in the ED, present on admission and active. 5. DM 2, present on admission and active. Diet controlled, with hemoglobin A1c 5.1% on 05/08/2024. 6. Hypertension, present on admission and active, remaining low off home medication. 7. Hyperlipidemia, present on admission and active. 8. Remote testicular cancer. 9. Recent loss of in March. 10. Hypo magnesemia, new and active. Corrected. 11. Hematuria in [place] after placement of Corral catheter. Likely traumatic. 12. Anemia, likely multifactorial. 13. Some paranoid thoughts, new and active. Discussed at length with daughter regarding coping strategies. Reassurance offered to patient. She is leaving for [place] this morning. 14. Anemia, new and active. 15. Hypokalemia. Replete intravenously. PLAN: -Corral decompression for GREG and urine retention. -New diagnosis presumed metastatic prostate cancer. Arrange outpatient urology workup/biopsy/treatment tomorrow -monitor blood pressure, hold meds for now. -TSH is mildly elevated, no active changes at this point. -monitor hematuria and bladder scan twice a day to rule out retention from clots. Monitor hemoglobin. -physical therapy assessment. -plan for SNF placement probably tomorrow. WILLIE is 06/01 Anticipate a 2 midnight medical necessity for hospital care to correct his acute medical problems. Time-Based Coding :: [TOTAL MINUTES] spent with patient and on the chart (including review of chart, obtaining history, exam, reviewing outside data, placing orders, documenting exam and treatment plan, and counseling patient) on [DATE]. Quality VTE Deep Vein Thrombosis/Pulmonary Embolism Present on Admission: No PROFEE Charge codes Subsequent inpatient/observation care: [id number]
[2024-06-02] MEDS: HEPARIN 5,000 UNIT/ML VIAL 5000 UNIT SUBCUT ×2 (09:34→19:41)
[2024-06-02] MEDS: THIAMINE 100 MG TABLET PO (09:34)
--- NOTE | 2024-06-02 12:42 | PT.IPTN ---
Current Diagnoses Acute kidney failure, unspecified (05/28/24) Physical Therapy Treatment Note M2 PT-IP Current Condition Start: 05/30/24 12:25 Freq: NEEDED Status: Active Protocol: Document 05/30/24 12:20 MB (Rec: 05/30/24 13:11 MB [id number]) Physical Therapy Current Condition Current Condition Evaluation Date 05/30/24 Treatment Diagnosis Excessive weight loss, GREG, weakness M3 PT-IP Subjective Start: 05/30/24 12:25 Freq: NEEDED Status: Active Protocol: Document 06/02/24 12:01 MB (Rec: 06/02/24 12:42 MB [id number]) Subjective Physical Therapy Visit Type Type Treatment Note Visit Start Time 12:01 Visit Stop Time 12:26 Number of RESOLUTION EXPERT Visits 0 Physical Therapy Visit Comments Patient Comments Pt hook lying in bed and agreeable to PT. Therapy Pain Assessment Pain When Pain Assessed At Rest Pain Present Pain Present Denied Pain M4 PT-IP Mobility and Gait Start: 05/30/24 12:25 Freq: NEEDED Status: Active Protocol: Document 06/02/24 12:01 MB (Rec: 06/02/24 12:42 MB [id number]) PT-Bed Mobility Assessment Rolling Type of Rolling Roll to Left Level of Assist Standby Assistance Supine to Sit Supine to Sit Standby Assistance,Head of Bed Elevated,Bedrails Sit to Supine Sit to Supine Standby Assistance,Bedrails Scooting Scooting to Edge of Bed Standby Assistance Scooting Up and Down in Bed Standby Assistance PT-Transfer Assessment Sit to and From Stand Sit to and from Stand Contact Guard Assistance,1 Person Assistance Equipment Transfer Assistive Device Gait Belt,Front Wheeled Walker Orthotic/Prosthetic Devices or Brace: No Transfers Transfer Destination Bed Transfer Technique Ambulation Transfer Ability Level of Assist Contact Guard Assistance,1 Person Assistance,Use of Upper Extremities Comments Mobility Comments Pt agreeable to mobility and states he does not prefer sitting up in the chair. He asks for waffle cushion to sit on after treatment and PT obtains and places under bed pad Gait Assessment Gait Gait Assistance Required: Standby Assistance,Contact Guard Assist Distance (Feet) 10 Assistive Devices Assistive Device Gait Belt,Front Wheeled Walker Orthotic/Prosthetic Devices or Brace: No Gait Deviations General Gait Pattern Decreased Stride Length, Decreased Feet Clearance Factors Limiting Gait Function Factors Limiting Gait Function Decreased Activity Tolerance, Decreased Strength,Poor Balance,Poor Safety Awareness Comments Gait Comments Gait training forward and side stepping and backwards about 10'x2 near the bed today and PT changes bed after nsg reports this is something they would like to do and pt stands statically with RW during this PT-Balance Assessment Sitting Balance and Reactions Static Sitting Balance Ability Good Dynamic Sitting Balance Ability Good Standing Balance and Reactions Static Standing Balance Ability Good Dynamic Standing Balance Ability Fair Device Used FWW M5 PT-IP Objective Assessments Start: 05/30/24 12:25 Freq: NEEDED Status: Active Protocol: Document 05/30/24 12:20 MB (Rec: 05/30/24 13:11 MB [id number]) Orientation Orientation/Cognition Level of Alertness Alert Orientation Name,Age,Birthday,Month,Date, Year,Day of Week,Place, Situation Language Function Ability No Deficits Noted Safety Awareness Decreased Safety Awareness Memory Description No Deficits Noted Gross Range of Motion Upper Extremity ROM Impairments Defer to OT Lower Extremity ROM Assessment Within Functional Limits Impairments Cachexia and decreased muscle mass and pt cannot tolerate ROM or MMT today Strength Lower Extremity Strength Assessment Within Functional Limits Comments Strength Comments See comments above. Can MMT a later date. Coordination Assessment Assessment Coordination Comments Did not test today. Sensation Assessment Comments Sensation Comments Did not test today. M7 PT-IP Assessment and Plan Start: 05/30/24 12:25 Freq: NEEDED Status: Active Protocol: Document 06/02/24 12:01 MB (Rec: 06/02/24 12:42 MB [id number]) PT Summary Assessment and Plan Potential Rehabilitation Potential Good Summary Impairments ROM,Strength,Balance,Bed Mobility,Transfers,Gait, Activity Tolerance Progress Towards Goals Slow Progress due to Activity Tolerance Assessment Summary Pt participates with PT today. Pt has limited activity tolerance in setting of medical comorbidities but he is participatory with PT. Goals Bed Mobility Goal Independent Transfer Goal Independent,Cane,Front Wheeled Walker Gait Goal Independent,Cane,Front Wheel Walker Gait Distance 75 Other Goals Pt will ascend and descend flight of steps with two rails or cane and one rail to allow safe home entry. Days to Meet Goals 10 Frequency of Treatment Frequency Of Treatment Once a Day Treatment Plan Physical Therapy Treatment Plan Bed Mobility Training,Transfer Training,Gait Training, Therapeutic Exercise,Balance Retraining,Discharge Planning, Hot or Cold Pack,Neuromuscular Re-ed,Coordination Retraining ,Manual Therapy Precautions Other Precautions Fall risk Weight Bearing Status Allowed Weight Bearing Amount (enter % No restrictions or #) (%) Recommendations To Nursing Amount of Assist Needed 1 Person Assist Discharge Recommendations PT Discharge Recommendations SNF Rehab Transportation Needs at Discharge Private Vehicle,Wheelchair/ Cabulance
--- NOTE | 2024-06-02 15:13 | CM.DPNOTE ---
DCP Note LAUNDRY ROUTEMAN reviewed EMR. Per RN, pt was told this morning of new diagnosis of metastatic prostate cancer. LAUNDRY ROUTEMAN met with pt in room. Confirm preference is [facility] if possible. Pt reporting concerns about staff placing tracker in his IV? Had to end conversation early to go to morning rounds. Per hospitalist in morning rounds, pt wants to pursue treatment for cancer. Per provider, had a long chat with pt and daughter in room. Dtr become frustrated with pt and left the hospital. per provider, dtr reports was getting on a plane to go to [place]? Per hospitalist, dtr reports tumultuous relationship with her dad her whole life and told hospitalist she does not want him in [place] anymore. LAUNDRY ROUTEMAN lvm with dtr (call went straight to ) no response. LAUNDRY ROUTEMAN spoke with Chrystal from . Chrystal reports getting auth. Concerned aboout DCP post rehab and pt's new cancer diagnosis, unable to accept pt if he desires to pursue treatment. Due to them being short on bed availability, plan to accept other pt's at this time and will continue to communicate closely later in the week for dc to [facility] if stable DCP post rehab/if pt agreeable to delaying treatment. LAUNDRY ROUTEMAN attempted to speak with pt again x3, either busy with other staff or on commode. need to confirm short order cook plan (return to [place] with dtr?) vs preference for treatment for cancer??? P: pending LTC plan/cancer treatment plan. CM team will continue to follow closely LAW Lopez
[2024-06-03 01:00] VITALS: O2SAT 6
[2024-06-03 02:00] VITALS: BP 110/51; PULSE 83; RESP 13; TEMP 36.2; O2SAT 99
--- NOTE | 2024-06-03 03:41 | PC.NURSE ---
Pt alert and oriented at the beginning of the shift and around 0330, confused, not knowing where he was at. Once reoriented pt went back to sleep.
[2024-06-03 08:00] VITALS: BP 110/55; PULSE 78; RESP 15; TEMP 36.9; O2SAT 100
[2024-06-03] MEDS: HEPARIN 5,000 UNIT/ML VIAL 5000 UNIT SUBCUT ×2 (09:27→20:58)
[2024-06-03] MEDS: THIAMINE 100 MG TABLET PO (09:27)
[2024-06-03] MEDS: SODIUM CHLORIDE 0.9% FLUSH 10 ML IV (09:28)
--- NOTE | 2024-06-03 10:38 | PM.PN.1 ---
Subjective Subjective Interval history: Summary: Admitted with weight loss, GREG, urinary retention, and hypokalemia. His in the summertime. He has been having some diarrhea here, which is new. He requested an antidiarrheal medication. Also did note that to women were trying to street him and plant a transmitter into his body. Other than that everybody else has been very kind and helpful in his care. PSA 996. S: doing well today. No pain, rodrigues in place. Exam Vital Signs (past 8 hours): - 06/03/24 08:00 Temperature 98.5 F Pulse Rate 78 Respiratory Rate 15 Blood Pressure 110/55 L Pulse Oximetry 100 Oxygen Flow Rate 0 Oxygen Delivery Method Room Air Oxygen Flow Rate 0 Narrative Exam Narrative: NAD, alert and oriented. Fluent speech. Cachectic and animated, Rodrigues in place. Lungs are clear, normal rate and effort. Heart is regular, no murmur gallop or rub. Abdomen is soft, non distended. Extremities are free of edema. Objective Labs 06/01/24 05:40 06/01/24 05:40 [facility]LY [facility] Medical History Normocytic anemia Kidney failure Fatigue Shortness of breath on exertion History of testicular cancer Early satiety Hoarseness Frequent urination Weight loss Surgical History History of cataract surgery Social History household members: none Smoking Status: Former smoker alcohol intake: former Assessment & Plan Assessment & Plan narrative: Assessment & Plan narrative: 1. GREG, present on admission, due to postop obstructive uropathy due to presumed prostate cancer, resolved. 2. Elevated PSA 996 due to presumed metastatic prostate cancer. Plan for outpatient urology consult and biopsy. 3. Hypokalemia, present on admission and resolved. 4. Urine retention with Rodrigues placed in the ED, present on admission and active. 5. DM 2, present on admission and active. Diet controlled, with hemoglobin A1c 5.1% on 05/08/2024. 6. Hypertension, present on admission and active, remaining low off home medication. 7. Hyperlipidemia, present on admission and active. 8. Remote testicular cancer. 9. Recent loss of in March. 10. Hypo magnesemia, new and active. Corrected. 11. Hematuria in Rodrigues after placement of Rodrigues catheter. Likely traumatic. 12. Anemia, likely multifactorial. 13. Some paranoid thoughts, new and active. Discussed at length with daughter regarding coping strategies. Reassurance offered to patient. She is leaving for [place] this morning. 14. Anemia, new and active. 15. Hypokalemia. Replete intravenously. PLAN: -Rodrigues decompression for GREG and urine retention. -New diagnosis presumed metastatic prostate cancer. Arrange outpatient urology workup/biopsy/treatment tomorrow -monitor blood pressure, hold meds for now. -TSH is mildly elevated, no active changes at this point. -monitor hematuria and bladder scan twice a day to rule out retention from clots. Monitor hemoglobin. -physical therapy assessment. -plan for SNF placement probably today or tomorrow. Time-Based Coding :: [TOTAL MINUTES] spent with patient and on the chart (including review of chart, obtaining history, exam, reviewing outside data, placing orders, documenting exam and treatment plan, and counseling patient) on [DATE]. Quality VTE Deep Vein Thrombosis/Pulmonary Embolism Present on Admission: No
--- NOTE | 2024-06-03 11:51 | PC.NURSE ---
Patient is lucid at times and confused at times. His bedding was changed, his teeth brushed. He does not eat much at meals and does not seem to like the foods we offer him. Even when staff is helping him order his food. Up to the commode with min assist and patient is getting ready to eat lunch now.
--- NOTE | 2024-06-03 12:56 | DIET.PN1 ---
Dietary Progress Note Assessment: Continuing to work to coordinate meals for pt. Pt enjoyed the plain north korean yogurt, doesn't like ONS or smoothies. Will keep serving this and order it BID. Pt is wanting more healthy fats. Informed by kitchen staff yogurt is full fat. Discussed other healthy fat options available. Unit host continues coordinating meals per pt preference. Ht: 165.1 cm Wt: 41.5 kg BMI: 15.2 Last BM: 06/03/24 (06/03/24 06:00) MNA: 4 Pradip Score: 19 Diet: 05/28/24 Dinner General (Regular) Diet Diet Modifications: Nutrition Percent Meal Consumed 75% 06/02/24 19:32 Percent Meal Consumed 75% 06/02/24 13:00 Percent Meal Consumed 100% 06/01/24 18:00 Labs: RBC 2.99 X10^6/uL (4.5-5.9) L 06/01/24 05:40 Hgb 9.0 g/dL (13.5-17.5) L 06/01/24 05:40 Hct 26.7 % (41-53) L 06/01/24 05:40 Creatinine 1.21 mg/dL (0.66-1.25) 06/01/24 05:40 Lactate 1.1 mmol/L (0.7-2.1) 05/28/24 14:20 Electronically Signed by: Mally Yang 06/03/24 12:56 Clinical Dietitian [address] [address]
--- NOTE | 2024-06-03 13:30 | CM.DPC ---
Addendum entered by LAW Capps 06/03/24 14:36: ADD: Received a call from pt's Dtr Nasir and updated her on the current full beds at [facility] and [facility] review. Dtr in agreement with d/c to any SNF that can accept. Dtr requesting SW to begin working on the recommended Urology outpt f/u now before pt discharges to get pt on the schedule so he doesn't have to wait for months. MARQUEZ called [facility] and they confirm that Dr. Moya is booked out until Jul but the new provider Dr. Johnson currently has more availability. Since pt has [employer] for insurance then they need referral from his PCP Dr. Lynch and request this cj. SW sent WebEx msg to the career center director at [facility] requesting assist with referral to [facility]. BF Original Note: DCP SNF Cont: Per MD, pt likely stable for discharge to SNF once SNF secured. Pt not currently pursuing cancer tx. MARQUEZ met bedside with pt and explained role and pt A&O x3 and confirms he is agreeable to d/c to [facility] for rehab and then continues to have plans of either staying in [place] after SNF with Medicaid LTC either [facility] or [facility] vs move to [place] where his Dtr and grandson live. Per Chrystal at [facility], they had obtained pt's insurance auth but needed to fill the open beds over the weekend and currently do not have an open bed until likely MonJun 07 this week but will keep SW updated. MARQUEZ contacted Stephani at [facility] and currently they are full/at capacity. MARQUEZ made referral to Dunia at [facility] and secure emailed referral for review and called and left asking to review for discharge by tomorrow Tu if they have an opening. PASRR previously completed, insurance auth might need to be obtained again. Call from [facility] Franco Resendiz [phone] stating Medicaid application was submitted but was not the LTC application and this is needed to continue pursuing LTC through Medicaid. MARQUEZ assisted pt in completing Medicaid LTC application and he provided information about the cost of his rent and social security and his spouse vehicle and signed the application. MARQUEZ faxed to [facility] to review. Plan: SW to follow closely for [facility] review to confirm if they can accept and if they have a bed before [facility] will have one available at the end of the week and to initiate insurance auth. LAW Capps
--- NOTE | 2024-06-03 16:17 | PT.IPTN ---
Current Diagnoses Acute kidney failure, unspecified (05/28/24) Physical Therapy Treatment Note M2 PT-IP Current Condition Start: 05/30/24 12:25 Freq: NEEDED Status: Active Protocol: Document 05/30/24 12:20 MB (Rec: 05/30/24 13:11 MB [id number]) Physical Therapy Current Condition Current Condition Evaluation Date 05/30/24 Treatment Diagnosis Excessive weight loss, GREG, weakness M3 PT-IP Subjective Start: 05/30/24 12:25 Freq: NEEDED Status: Active Protocol: Document 06/03/24 15:51 MB (Rec: 06/03/24 16:17 MB [id number]) Subjective Physical Therapy Visit Type Type Treatment Note Visit Start Time 15:51 Visit Stop Time 16:11 Number of MANGLE ROLL OPERATOR Visits 0 Physical Therapy Visit Comments Patient Comments Pt is agreeable to PT. M4 PT-IP Mobility and Gait Start: 05/30/24 12:25 Freq: NEEDED Status: Active Protocol: Document 06/03/24 15:51 MB (Rec: 06/03/24 16:17 MB [id number]) PT-Bed Mobility Assessment Rolling Type of Rolling Bilateral Level of Assist Standby Assistance Supine to Sit Supine to Sit Standby Assistance,Head of Bed Elevated,Bedrails Sit to Supine Sit to Supine Standby Assistance,Bedrails Scooting Scooting to Edge of Bed Standby Assistance Scooting Up and Down in Bed Standby Assistance PT-Transfer Assessment Sit to and From Stand Sit to and from Stand Contact Guard Assistance,1 Person Assistance Equipment Transfer Assistive Device Gait Belt,Front Wheeled Walker Orthotic/Prosthetic Devices or Brace: No Transfers Transfer Destination Bed Transfer Technique Ambulation Transfer Ability Level of Assist Contact Guard Assistance,1 Person Assistance,Use of Upper Extremities Comments Mobility Comments Pt is SOB and reports trouble hearing when he gets anxious on commode and with gait, has trouble multi-tasking he states and PT is somewhat concerned about pain and SOB despite no reports about this Gait Assessment Gait Gait Assistance Required: Contact Guard Assist,1 Person Assist Distance (Feet) 20 Assistive Devices Assistive Device Gait Belt,Front Wheeled Walker Orthotic/Prosthetic Devices or Brace: No Gait Deviations General Gait Pattern Decreased Stride Length, Decreased Feet Clearance, Flexed Trunk Factors Limiting Gait Function Factors Limiting Gait Function Decreased Activity Tolerance, Decreased Strength,Poor Balance,Poor Safety Awareness Comments Gait Comments 20'x2 to BR and cues for reaching for rail with right hand and PT blocks RW. Dependent for managing brief and for hygiene after BM. Pt with some anxiety about being in BR despite door open and states he likes windows and open doors PT-Balance Assessment Sitting Balance and Reactions Static Sitting Balance Ability Good Dynamic Sitting Balance Ability Good Standing Balance and Reactions Static Standing Balance Ability Good Dynamic Standing Balance Ability Fair Device Used FWW M5 PT-IP Objective Assessments Start: 05/30/24 12:25 Freq: NEEDED Status: Active Protocol: Document 05/30/24 12:20 MB (Rec: 05/30/24 13:11 MB [id number]) Orientation Orientation/Cognition Level of Alertness Alert Orientation Name,Age,Birthday,Month,Date, Year,Day of Week,Place, Situation Language Function Ability No Deficits Noted Safety Awareness Decreased Safety Awareness Memory Description No Deficits Noted Gross Range of Motion Upper Extremity ROM Impairments Defer to OT Lower Extremity ROM Assessment Within Functional Limits Impairments Cachexia and decreased muscle mass and pt cannot tolerate ROM or MMT today Strength Lower Extremity Strength Assessment Within Functional Limits Comments Strength Comments See comments above. Can MMT a later date. Coordination Assessment Assessment Coordination Comments Did not test today. Sensation Assessment Comments Sensation Comments Did not test today. M7 PT-IP Assessment and Plan Start: 05/30/24 12:25 Freq: NEEDED Status: Active Protocol: Document 06/03/24 15:51 MB (Rec: 06/03/24 16:17 MB [id number]) PT Summary Assessment and Plan Potential Rehabilitation Potential Fair Status of Condition at Evaluation Evolving Summary Impairments ROM,Strength,Balance,Bed Mobility,Transfers,Gait, Activity Tolerance Progress Towards Goals Slow Progress due to Activity Tolerance Assessment Summary Pt is able to gait train to BR today and he does require dependent assistance to manage brief and for hygiene. He has some anxiety in the BR despite door being open and he states he likes open windows and open doors. Goals Bed Mobility Goal Independent Transfer Goal Independent,Cane,Front Wheeled Walker Gait Goal Independent,Cane,Front Wheel Walker Gait Distance 75 Other Goals Pt will ascend and descend flight of steps with two rails or cane and one rail to allow safe home entry. Days to Meet Goals 10 Frequency of Treatment Frequency Of Treatment Once a Day Treatment Plan Physical Therapy Treatment Plan Bed Mobility Training,Transfer Training,Gait Training, Therapeutic Exercise,Balance Retraining,Discharge Planning, Hot or Cold Pack,Neuromuscular Re-ed,Coordination Retraining ,Manual Therapy Precautions Other Precautions Fall risk Weight Bearing Status Allowed Weight Bearing Amount (enter % No restrictions, though newly or #) (%) found prostate CA and unsure if mets Recommendations To Nursing Amount of Assist Needed 1 Person Assist Discharge Recommendations PT Discharge Recommendations SNF Rehab Transportation Needs at Discharge Private Vehicle,Wheelchair/ Cabulance
[2024-06-03 18:00] VITALS: BP 109/57; PULSE 83; RESP 16; TEMP 36.8; O2SAT 100
[2024-06-03 20:00] VITALS: BP 93/46; PULSE 95; RESP 16; TEMP 36.8; O2SAT 99
[2024-06-03] MEDS: LOPERAMIDE 2 MG CAPSULE PO (20:58)
[2024-06-03 21:00] VITALS: O2SAT 99
[2024-06-04] VITALS (8 sets, daily range): BP systolic 86–108; BP diastolic 36–57; PULSE 86–96; RESP 16–18; TEMP 36.4–37.2; O2SAT 94–100
[2024-06-04] MEDS: SODIUM CHLORIDE 0.9% FLUSH 10 ML IV (08:51)
[2024-06-04] MEDS: HEPARIN 5,000 UNIT/ML VIAL 5000 UNIT SUBCUT ×2 (08:51→21:09)
[2024-06-04] MEDS: THIAMINE 100 MG TABLET PO (08:52)
--- NOTE | 2024-06-04 10:54 | CM.DPC ---
DCP Cont. Reviewed EMR and team rounds for status updates. CHIEF MATE called [facility], they are waiting on the auth, it's still pending. Likely it will come through later this afternoon and he can d/c tomorrow. Monitoring for auth.
--- NOTE | 2024-06-04 10:55 | PT.IPTN ---
Current Diagnoses Acute kidney failure, unspecified (05/28/24) Physical Therapy Treatment Note M2 PT-IP Current Condition Start: 05/30/24 12:25 Freq: NEEDED Status: Active Protocol: Document 05/30/24 12:20 MB (Rec: 05/30/24 13:11 MB [id number]) Physical Therapy Current Condition Current Condition Evaluation Date 05/30/24 Treatment Diagnosis Excessive weight loss, GREG, weakness M3 PT-IP Subjective Start: 05/30/24 12:25 Freq: NEEDED Status: Active Protocol: Document 06/04/24 11:16 TS (Rec: 06/04/24 11:28 TS [id number]) Subjective Physical Therapy Visit Type Type Treatment Note Visit Start Time 10:55 Visit Stop Time 11:15 Number of STUDIO RECEPTIONIST Visits 1 Physical Therapy Visit Comments Patient Comments Pt is agreeable to PT. M4 PT-IP Mobility and Gait Start: 05/30/24 12:25 Freq: NEEDED Status: Active Protocol: Document 06/04/24 11:16 TS (Rec: 06/04/24 11:28 TS [id number]) PT-Bed Mobility Assessment Supine to Sit Supine to Sit Standby Assistance,Head of Bed Elevated,Bedrails Scooting Scooting to Edge of Bed Standby Assistance PT-Transfer Assessment Sit to and From Stand Sit to and from Stand Contact Guard Assistance,1 Person Assistance Equipment Transfer Assistive Device Gait Belt,Front Wheeled Walker Orthotic/Prosthetic Devices or Brace: No Comments Mobility Comments Supine to sit with HOB elevated SBA, pt uses UE's to assist Le's to EOB. STS with FWW SBA, pt braces back of LE' s against bed for balance. He ambulates ~10' in the room before requesting to use commode. pt was left on the commode, nursing notified. Gait Assessment Gait Gait Assistance Required: Standby Assistance,Contact Guard Assist,1 Person Assist Distance (Feet) 10 Assistive Devices Assistive Device Gait Belt,Front Wheeled Walker Gait Deviations General Gait Pattern Decreased Stride Length, Decreased Feet Clearance, Flexed Trunk Factors Limiting Gait Function Factors Limiting Gait Function Decreased Activity Tolerance, Decreased Strength,Poor Balance,Poor Safety Awareness PT-Balance Assessment Sitting Balance and Reactions Static Sitting Balance Ability Good Dynamic Sitting Balance Ability Good Standing Balance and Reactions Static Standing Balance Ability Fair Dynamic Standing Balance Ability Fair Device Used FWW M5 PT-IP Objective Assessments Start: 05/30/24 12:25 Freq: NEEDED Status: Active Protocol: Document 05/30/24 12:20 MB (Rec: 05/30/24 13:11 MB [id number]) Orientation Orientation/Cognition Level of Alertness Alert Orientation Name,Age,Birthday,Month,Date, Year,Day of Week,Place, Situation Language Function Ability No Deficits Noted Safety Awareness Decreased Safety Awareness Memory Description No Deficits Noted Gross Range of Motion Upper Extremity ROM Impairments Defer to OT Lower Extremity ROM Assessment Within Functional Limits Impairments Cachexia and decreased muscle mass and pt cannot tolerate ROM or MMT today Strength Lower Extremity Strength Assessment Within Functional Limits Comments Strength Comments See comments above. Can MMT a later date. Coordination Assessment Assessment Coordination Comments Did not test today. Sensation Assessment Comments Sensation Comments Did not test today. M7 PT-IP Assessment and Plan Start: 05/30/24 12:25 Freq: NEEDED Status: Active Protocol: Document 06/04/24 11:16 TS (Rec: 06/04/24 11:28 TS [id number]) PT Summary Assessment and Plan Potential Rehabilitation Potential Fair Summary Impairments ROM,Strength,Balance,Bed Mobility,Transfers,Gait, Activity Tolerance Progress Towards Goals Slow Progress due to Activity Tolerance Assessment Summary Anoop continues to make slow progress with his mobility due to poor activity tolerance. He continues to perform bed mobility SBA. He ambulates short distances in the room SBA/CGA before fatigue sets in . PT continues to recommend SNF. Goals Bed Mobility Goal Independent Transfer Goal Independent,Cane,Front Wheeled Walker Gait Goal Independent,Cane,Front Wheel Walker Gait Distance 75 Other Goals Pt will ascend and descend flight of steps with two rails or cane and one rail to allow safe home entry. Days to Meet Goals 10 Frequency of Treatment Frequency Of Treatment Once a Day Treatment Plan Physical Therapy Treatment Plan Bed Mobility Training,Transfer Training,Gait Training, Therapeutic Exercise,Balance Retraining,Discharge Planning, Hot or Cold Pack,Neuromuscular Re-ed,Coordination Retraining ,Manual Therapy Precautions Other Precautions Fall risk Weight Bearing Status Allowed Weight Bearing Amount (enter % No restrictions, though newly or #) (%) found prostate CA and unsure if mets Recommendations To Nursing Amount of Assist Needed 1 Person Assist Discharge Recommendations PT Discharge Recommendations SNF Rehab Transportation Needs at Discharge Private Vehicle,Wheelchair/ Cabulance
--- NOTE | 2024-06-04 16:45 | P.PN_ITS ---
Subjective Subjective Interval history: Summary: Admitted with weight loss, GREG, urinary retention, and hypokalemia. His in the summertime. He has been having some diarrhea here, which is new. He requested an antidiarrheal medication. Also did note that to women were trying to street him and plant a transmitter into his body. Other than that everybody else has been very kind and helpful in his care. PSA 996. S: doing well today. No pain, rodrigues in place. Exam Vital Signs (past 8 hours): - 06/04/24 09:00 06/04/24 13:24 Pulse Oximetry 100 Oxygen Delivery Method Room Air Room Air Oxygen Flow Rate 0 Oxygen Delivery Method Room Air Oxygen Flow Rate 0 Narrative Exam Narrative: NAD, alert and oriented. Fluent speech. Cachectic and animated, Rodrigues in place. Lungs are clear, normal rate and effort. Heart is regular, no murmur gallop or rub. Abdomen is soft, non distended. Extremities are free of edema. Objective Labs 06/01/24 05:40 06/01/24 05:40 [facility] Medical History Normocytic anemia Kidney failure Fatigue Shortness of breath on exertion History of testicular cancer Early satiety Hoarseness Frequent urination Weight loss Surgical History History of cataract surgery Social History household members: none Smoking Status: Former smoker alcohol intake: former Assessment & Plan Assessment & Plan narrative: Assessment & Plan narrative: 1. GREG, present on admission, due to postop obstructive uropathy due to presumed prostate cancer, resolved. 2. Elevated PSA 996 due to presumed metastatic prostate cancer. Plan for outpatient urology consult and biopsy. 3. Hypokalemia, present on admission and resolved. 4. Urine retention with Rodrigues placed in the ED, present on admission and active. 5. DM 2, present on admission and active. Diet controlled, with hemoglobin A1c 5.1% on 05/08/2024. 6. Hypertension, present on admission and active, remaining low off home medication. 7. Hyperlipidemia, present on admission and active. 8. Remote testicular cancer. 9. Recent loss of in March. 10. Hypo magnesemia, new and active. Corrected. 11. Hematuria in Rodrigues after placement of Rodrigues catheter. Likely traumatic. 12. Anemia, likely multifactorial. 13. Some paranoid thoughts, new and active. Discussed at length with daughter regarding coping strategies. Reassurance offered to patient. She is leaving for [place] this morning. 14. Anemia, new and active. 15. Hypokalemia. Replete intravenously. PLAN: -Rodrigues decompression for GREG and urine retention. -New diagnosis presumed metastatic prostate cancer. Refer to urology on discharge. -monitor blood pressure, hold meds for now. -TSH is mildly elevated, no active changes at this point. -monitor hematuria and bladder scan twice a day to rule out retention from clots. Monitor hemoglobin. -continue therapies. -plan for SNF placement, pending insurance authorization, hopeful for tomorrow. Time-Based Coding :: [TOTAL MINUTES] spent with patient and on the chart (including review of chart, obtaining history, exam, reviewing outside data, placing orders, documenting exam and treatment plan, and counseling patient) on [DATE]. Quality VTE Deep Vein Thrombosis/Pulmonary Embolism Present on Admission: No
[2024-06-04] MEDS: LOPERAMIDE 2 MG CAPSULE PO (21:09)
--- NOTE | 2024-06-04 23:26 | PC.NURSE ---
Addendum entered by Augusta Phelan R.N. 06/05/24 04:55: Unable to flush or get blood return on pt PIV; removed IV, MD Denice lloyd'ed no replacement IV access. Original Note: NOC: During shower, this RN noticed a small pale ring of either macerated tissue or exudate around the urinary meatus of the pt's penis surrounding the Corral catheter. Provided catheter and arlin care, was able to remove substance, no bleeding or redness. Pt reported no pain during cleaning. Dried and situated catheter tube comfortably once back in bed. Will continue to monitor.
[2024-06-05 01:00] VITALS: O2SAT 94
[2024-06-05 05:00] VITALS: O2SAT 94
[2024-06-05 07:18] LABS: BUN Creatinine Ratio 26.3 (6-22); Blood Urea Nitrogen 26 mg/dL (9-20); Carbon Dioxide 21 mmol/L (22-32); Chloride 113 mmol/L (98-107); Estimated Glomerular Filt Rate > 60 mL/min (>60); HEMOLYSIS < 15 (0-50); Potassium 3.5 mmol/L (3.4-5.1); Sodium 140 mmol/L (137-145)
[2024-06-05 07:26] LABS: Calcium 7.5 mg/dL (8.4-10.2); Glucose 92 mg/dL (80-110)
[2024-06-05 08:05] VITALS: BP 94/47; PULSE 95; RESP 18; TEMP 36.2; O2SAT 98
[2024-06-05] MEDS: THIAMINE 100 MG TABLET PO (08:09)
[2024-06-05] MEDS: HEPARIN 5,000 UNIT/ML VIAL 5000 UNIT SUBCUT (08:09)
--- NOTE | 2024-06-05 08:12 | P.DS_ITS ---
History of Present Illness History of Present Illness Date Patient Seen: 06/05/24 Time Patient Seen: 08:12 Chief complaint: Feeling Unwell/ SOB Narrative: From admitting provider From ED doctor: 73-year-old gentleman with a distant history of type 2 diabetes, hypertension, hyperlipidemia, testicular cancer. Apparently has had a loss of appetite over the last 3 years that has gotten dramatically worse since March of this year. His that time. Per friends, who called 911 today which is how the patient ended up in the emergency department, he does not get up does not move around he has not eating, not drinking. Medics describe an hygienic situation in the home. The patient himself is significantly weak with exertional dyspnea and is extraordinarily cachectic. Additional information: He notes an intentional weight loss from 250-125 several years ago. He was now slept from 09/28 to underwent 100 lb since his in March. He was had profound anorexia which may relate to her . In the ED he had a Rodrigues catheter placed with over a L of urine. He does feel better, he denies having a sensation of a full bladder before the catheter was placed however. No nausea, or vomiting. No chest pain, or dyspnea. He does have poor vision and can not read, having had cataract surgeries in the past. He also has chronic neck stiffness and knee pain. He lives alone in [place]. A renal ultrasound from May 16, 2024 revealed moderate to severe bilateral hydronephrosis as well as bilateral renal calices and a markedly distended bladder consistent with retention at that time. Discharge Providers Provider Date of admission: 05/28/24 15:42 Discharge Date: 06/05/24 Primary care physician: Lara Lynch MD Consults: 05/30/24 11:37 Consult to Occupational Therapy Evaluate & Treat Comment: Physician Instructions: Evaluate and treat Consult to Physical Therapy Evaluate & Treat Comment: Physician Instructions: Evaluate and Treat Discharge provider: Marcos Reyes DO Summary Hospital Course Discharge Diagnosis: 1. GREG, present on admission, due to obstructive uropathy due to presumed prostate cancer, resolved. 2. Elevated PSA 996 due to presumed metastatic prostate cancer. Plan for outpatient urology consult and biopsy. 3. Hypokalemia, present on admission and resolved. 4. Urine retention with Rodrigues placed in the ED, present on admission and active. 5. DM 2, present on admission and active. Diet controlled, with hemoglobin A1c 5.1% on 05/08/2024. 6. Hypertension, present on admission and active, remaining low off home medication. 7. Hyperlipidemia, present on admission and active. 8. Remote testicular cancer. 9. Recent loss of in March. 10. Hypomagnesemia, Corrected. 11. Hematuria in Rodrigues after placement of Rodrigues catheter. Likely traumatic. 12. Anemia, likely multifactorial. 15. Hypokalemia. 16. Severe protein calorie malnutrition Hospital Course: This is a 74 year old male with PMH of DM2, HTN, HLD, prior testicular cancer who was admitted with GREG likely due to urinary obstruction due to presumed prostate cancer. He did meet criteria for severe protein calorie malnutrition and was provided support by data processing consultant services. After rodrigues placement and fluids, patient's GREG resolved and remained normal after fluids were stopped. Continued rodrigues is recommended along with outpatient urology. On discharge, there was already an order for urology referral placed by his PCP on 06/04 so this was not repeated. He had both low mag and potassium which were repleted over the course of his stay and improved. He was recommended for SNF after therapy evaluations for ongoing therapies. A1c was at 5.1%, and BP was low off of any medications so no ongoing medications are recommended at discharge though he does take a thiamine supplement. Medications were reconciled prior to discharge to SNF, where he was transferred on 06/05/24. Time Spent with Patient Time spent: Greater than 30 minutes Exam Vital Signs (past 8 hours): - 06/05/24 01:00 06/05/24 05:00 06/05/24 08:05 Temperature 97.2 F L Pulse Rate 95 H Respiratory Rate 18 Blood Pressure 94/47 L Pulse Oximetry 94 94 98 Oxygen Delivery Method Room Air Room Air Oxygen Flow Rate 0 0 0 Oxygen Delivery Method Room Air Oxygen Flow Rate 0 Narrative Exam Narrative: NAD, alert and oriented. Fluent speech. Cachectic and animated, Rodrigues in place. Lungs are clear, normal rate and effort. Heart is regular, no murmur gallop or rub. Abdomen is soft, non distended. Extremities are free of edema. Objective Labs 06/01/24 05:40 06/05/24 06:00 Labs: Laboratory Results - last 24 hr 06/05/24 06:00 Sodium 140 Potassium 3.5 Chloride 113 H Carbon Dioxide 21 L BUN 26 H Creatinine 0.99 Estimated GFR > 60 BUN/Creatinine Ratio 26.3 H Glucose 92 Calcium 7.5 L PFSH Medical History Normocytic anemia Kidney failure Fatigue Shortness of breath on exertion History of testicular cancer Early satiety Hoarseness Frequent urination Weight loss Surgical History History of cataract surgery Social History household members: none Smoking Status: Former smoker alcohol intake: former Discharge Plan Discharge Plan Patient Disposition: [facility] Transfer to: [facility] Provider Discharge Comment: 74 M admitted with obstructive uropathy and GREG, likely prostate cancer. Urology referral ordered on 06/04 by PCP. Continue rodrigues catheter. Discharge orders & Medications Prescriptions: New acetaminophen 325 mg Tablet 650 mg PO Q6H PRN (Reason: Fever/Mild Pain (1-3)) Qty: 60 0RF loperamide 2 mg Capsule 2 mg PO QID PRN (Reason: Diarrhea) Qty: 30 0RF thiamine mononitrate (vit B1) 100 mg Tablet 100 mg PO DAILY Qty: 60 0RF Follow up/Referrals: Lara yLnch MD [Primary Care Provider] - Discharge Health Status Multidrug resistant organism: No MDRO Precautions: [place] Diet/Activity/Treatments Diet: Diet as Tolerated Liquid consistency: Normal/Thin Food texture: Regular Diet comment: No restrictions Activity: As tolerated, no restrictions Catheter: 2-way Rodrigues Catheter comment: for urinary obstruction Visit Report/Discharge Packet Stand Alone Forms: Patient Portal/API Discharge Data Primary Care Provider: Lara Lynch Quality VTE Deep Vein Thrombosis/Pulmonary Embolism Present on Admission: No
[2024-06-05 09:00] VITALS: O2SAT 98
--- NOTE | 2024-06-05 11:03 | PC.NURSE ---
Addendum entered by Stephanie Hutchison R.N. 06/05/24 11:05: Patient now agreeable with transfer. Belongings packed up, and Pt will be ready for d/c at 1300. Original Note: 0154: Pt very agitated, paranoid, stating that the hospital is holding him hostage and preventing him from going to his eye appointment, and stated that he does not want to go to scheduled rehab today. Contacted Marita in [place] and advised of patient's concerns. CM in to see patient and discussed transfer.
--- NOTE | 2024-06-05 12:17 | PC.NURSE ---
Called report to Maira at [facility]. Gave full Pt status. There were no further questions. Pt is packed up and ready to go when transport arrives.
== END 2024-06-05 13:48 | DRG 682 ==
LOC: ED 14:42 → AC 15:42
PROVIDERS: Internal Medicine; Admitting Provider Hospitalist; Emergency Provider Emergency Medicine; PCP Family Medicine; Referring Provider Emergency Medicine; Visit Provider Hospitalist
DX: N17.9 Acute kidney failure, unspecified (principal); E43 Unspecified severe protein-calorie malnutrition; Z68.1 Body mass index [BMI] 19.9 or less, adult; N13.8 Other obstructive and reflux uropathy; C79.9 Secondary malignant neoplasm of unspecified site; E87.6 Hypokalemia; E11.9 Type 2 diabetes mellitus without complications; I10 Essential (primary) hypertension; E78.5 Hyperlipidemia, unspecified; E83.42 Hypomagnesemia; R31.9 Hematuria, unspecified; D63.0 Anemia in neoplastic disease; C61 Malignant neoplasm of prostate; R79.89 Other specified abnormal findings of blood chemistry; F22 Delusional disorders; Z85.47 Personal history of malignant neoplasm of testis; Z87.891 Personal history of nicotine dependence
CPT/HCPCS: 36415; 51798; 71045; 80048; 80053; 81001; 82962; 83605; 83690; 83735; 84100; 84153; 84443; 84484; 85018; 85025; 87086; 87507; 93005; 93010; 96361; 96365; 96366; 97116; 97129; 97161; 97166; 97530; 99284; 99285; J1644; J3475